=== PATIENT | female | born 1960 | race Caucasian/White ===

== ENCOUNTER → 2018-01-05 14:28 | Outpatient (CLI) | payer MEDICARE, MEDICAID, SELFPAY ==
[2018-01-05 14:46] LABS: Add Manual Diff / Slide Review NO; Basophils Percent Auto 0.5 % (0-2); Eosinophils Percent Auto 0.9 % (2-4); Hematocrit 43.6 % (36-46); Hemoglobin 15.1 g/dL (12.0-16.0); Lymphocytes Percent Auto 46.5 % (25-40); Mean Corpuscular HGB Conc 34.7 % (30-36); Mean Corpuscular Hemoglobin 30.3 PG (26-34); Mean Corpuscular Volume 87.4 fL (80-100); Neutrophils Absolute Auto 3500 /uL (3000-5900); Neutrophils Percent Auto 45.1 % (50-75); Platelet Count 238 X10^3/uL (150-400); Red Blood Cell Count 4.99 X10^6/uL (4.0-5.2); Red Cell Distribution Width 14.1 % (11.6-14.8); White Blood Cell Count 7.7 X10^3/uL (4.5-11.0)
[2018-01-05 14:58] LABS: Alanine Aminotransferase 21 IU/L (9-52); Albumin 4.3 g/dL (3.5-5.0); Albumin Globulin Ratio 1.3 (1.0-2.8); Alkaline Phosphatase 86 U/L (38-126); Aspartate Aminotransferase 21 IU/L (14-36); BUN Creatinine Ratio 8.3 (6-22); Bilirubin Total 0.5 mg/dL (0.2-1.3); Blood Urea Nitrogen 5 mg/dL (7-17); Calcium 9.2 mg/dL (8.4-10.2); Carbon Dioxide 22 mmol/L (22-32); Chloride 105 mmol/L (98-107); Estimated Glomerular Filt Rate > 60.0 mL/min (>60); Globulin 3.2 g/dL (1.7-4.1); Glucose 110 mg/dL (70-100); HEMOLYSIS < 15 (0-50); Potassium 3.8 mmol/L (3.4-5.1); Sodium 138 mmol/L (137-145); Total Protein 7.5 g/dL (6.3-8.2)
== END ==
PROVIDERS: PCP Family Medicine; Visit Provider Nurse Practitioner Gerontology
DX: D68.51 Activated protein C resistance (principal)
CPT/HCPCS: 36415; 80053; 85025

== ENCOUNTER → 2018-01-12 15:31 | Oncology outpatient (ONC) | payer MEDICARE, MEDICAID, SELFPAY ==
--- NOTE | 2018-01-12 15:40 | ONC.PN ---
Assessment and Plan - Time Spent with Patient IMPRESSION: 1. Intermittent lower extremity edema. 2. Factor 5 Leiden mutation, heterozygous. No documented history of clot. 3. Tobacco use, ongoing. 4. COPD. 5. Hyperlipidemia. I reviewed the findings, lab and prior results with her today. She understands that she is at somewhat increased risk for blood clot based on heterozygous factor 5 Leiden mutation. This is not a high risk but is increased above background population. The greater concern, I think, is her ongoing tobacco use with significant smoking history. Chart notes suggest advanced COPD though I am not able to confirm with prior PFTs or other studies at her visit today. I suspect her lower extremity edema may be secondary to pulmonary hypertension related to her COPD and resultant right heart failure. She is not ready to consider quitting smoking at this time we did discuss at length. I strongly encouraged her to give it another try then to follow up with the smoking cessation program to enhance her likelihood of success. She will follow up with Dr. Mcknight and she would like to return here in a year. I encouraged her to call if new symptoms or concerns arise. PLAN: 1. Encouraged smoking cessation. 2. Monitor for new symptoms and call back as needed. 3. Follow up with other providers as planned. 4. Return appointment in 1 year. DICTATED BY TERI ISLAS MD MEDICAL ONCOLOGY AND HEMATOLOGY PN -Subjective Interval history: HEMATOLOGY/ONCOLOGY PROGRESS NOTE DATE OF SERVICE: JANUARY 12, 2018 PATIENT NAME: DATE OF : 1960 PCP: Millicent Mcknight DO IDENTIFICATION: Ms. Caruso is a 57-year-old woman with factor V Leiden mutation, heterozygous who returns in follow-up. INTERVAL HISTORY: She returns today in routine follow-up. Last seen here by Lisa RIDDLE June 02, [address] Johnston January 2017. She was previously evaluated for possible thrombophilia with the only finding of note being factor 5 Leiden mutation in 1 of 2 copies, heterozygous. She has no documented history of venous thrombo embolus. She does note history of intermittent swelling in her legs. This seems to come and go and she has noted this for a number of years perhaps more than 10 years. She also has a significant smoking history and continues to smoke. Averages 2 packs per day and has smoked since her early 20s. She has tried to quit in the past but think she will always smoke. She denies any recent chest pain, productive cough or hemoptysis. Again no known or documented history of peripheral DVT, pulmonary embolus or stroke. PRIOR NOTE/INFO FROM DR JOHNSTON: History of present illness Date of Service: 02/22/17 Primary Care Provider Primary Care Provider: Millicent Mcknight DO Hx of Present illness The patient is a 56 year old Female who is being seen in the clinic 02/22/17 for suspected hypercoagulable state She was seen on January 11 2017 for further evaluation of a report that she recalls that she was told approximately 2 years ago that she had a potential hypercoagulable state and needed to be on a blood thinner. She recalls that she was told she was deficient in either protein C or protein S but she is not sure. She thinks the provider who advised her was name Jesus but we do not have any records of that. She provides a long history of swelling and discoloration of both lower extremities and this was described in more detail by the Yvette Woodson on 12/14/2014 as swelling of her feet and red spots. The patient reports that for more than 10 years she has developed swelling of the lower extremities particularly after traveling and she develops what she calls spots on both lower extremities that take several days to go away. She demonstrates one today; this is a purplish erythematous scaly lesion approx 5 mm in diameter and occurs, she states, in multiple sites on the lower extremities. The exam on 12/14/2014 was unremarkable, except for a few small red macules distal to the lateral malleolus of the left foot. However she did have a Doppler on 04/13/2012 for similar symptoms and this was negative for DVT. She reports no personal or family history of thromboses otherwise, no personal history of PE. Past Medical History From Millicent Mcknight, and from the patient: Hyperlipidemia Colon Polyps (05/2010 tubular adenoma on c-scope), GERD (gastritis on 05/2010 EGD) Cervical Spine Disease, Chronic Back Pain, Shoulder Pain Asthma, COPD [id number] COPD, 2 pack per day smoker multiple episodes of pneumonia chronic back and multiple joint pains managed previously by [facility]ized in [place] last year for chest pain and pneumonia Hypertension vitamin D deficiency Past Surgical History colposcopy Pain level (0-10): 0 Resusitation Status Full code Current Medications ACETAMINOPHEN (TYLENOL) 325 MG TABLET 350 MG PO Q4H PRN PAIN (Reported) ALBUTEROL SULFATE (PROAIR HFA INHALER) 90 MCG/PUFF HFA.AER.AD 1 PUFF INH SEE INSTRUCTIONS Inhale 2 puffs by mouth four times daily. Prescribed by Janeth Woodson DO ASPIRIN 81 MG TAB.CHEW 81 MG PO QDAY (Reported) Chew 1 tablet daily. Atorvastatin Calcium 10 MG TABLET 10 MG PO HS Take 1 tablet by mouth at bedtime. Prescribed by Millicent Mcknight DO CETIRIZINE HCL 10 MG TABLET 10 MG PO QAM Take one pill by mouth once a day in am. Prescribed by Roxanna HINES,Millicent CYCLOBENZAPRINE HCL 10 MG TABLET 10 MG PO HS TAKE 1/2-1 TAB BY MOUTH THREE TIMES A DAY NEEDED Prescribed by Roxanna HINES,Millicent DOCUSATE SODIUM (COLACE) 250 MG CAPSULE 250 MG PO BID Take one tablet/capsule twice a day by mouth Prescribed by Millicent Mcknight DO IBUPROFEN (Unknown Strength) TABLET (Unknown Dose) PO Q4H PRN PAIN (Reported) Metoprolol Succinate (METOPROLOL XL) 50 MG TAB.ER.24H 50 MG PO QDAY Prescribed by Millicent Mcknight DO OXYCODONE HCL (OXYCODONE IR) 10 MG TABLET 10 MG PO Q4HP PRN PAIN take 1/2 to 1 tab by mouth every 4-6hrs as needed gentle weaning max 4.5 tabs/day two week supply Prescribed by Willis Talavera Allergies Coded Allergies: cefuroxime (Mild, 04/22/15) codeine (Mild, 04/22/15) gabapentin (Mild, 04/22/15) morphine (stomach ache 05/04/16) Patient HAS received vaccine No Tobacco Use Screening and Cessation Intervention:* 01/11/17 Smoking status:+ Current every day smoker Smoking pack year history 46 (may be more - sometimes 2 pk) Tobacco cessation education Patient declined Lab BUN 6.0 mg/dL L 05/28/16 1331 Creatinine 0.60 mg/dL 05/28/16 1331 Factor V Leiden Mutat heterozygous 02/05/17 1043 Hct 42.6 % 05/28/16 1331 Hgb 14.7 G/DL 05/28/16 1331 Plt Count 236 X10^3/uL 05/28/16 1331 WBC 9.0 X10^3/uL 05/28/16 1331 Miscellaneous Test lupus neg 02/05/17 1043 Miscellaneous Test DRRVVT neg 02/05/17 1046 Prothrombin [id number] Mut neg 02/05/17 1043 Assessment/Plan Assessment This is a patient with curious lower extremity symptoms that do not easily fit the diagnosis of thrombosis; she does, however, have Factor V Leiden heterozygosity. There is no immediate indication for anticoagulation, but should she develop repeated courses of superficial thrombosis, temporary anticoagulation would make sense. No other hypercoagulablenstate has been identified and her risk for life-threatening thormbosis is low. Time spent with Patient A total of 30 minutes were spent on this appointment, greater than 50% of that time [id number] with the patient in counseling and coordination of care. Discussion with patient included lab results, [diagnosis], treatment options, risks and benefits. Plan for treatment Counselled on the significance of Factor V Leiden heterozygosity, and the recommendation to not anticoagulate. 3 month clinical follow up She is to call immediately for evaluation if she develops swelling of the leg Copies to Millicent Mcknight DO at [phone] <Electronically signed by Buddy Johnston MD> (PLEASE NOTE): This report may have been all or partially generated using a voice recognition software program. While every effort has been made to edit content upon its completion, quarter trimmer errors may occur. Please contact the [facility] Clinical Lab Specialist Services Dept. at if there are any questions, or if further clarification is necessitated. - Additional ROS Additional ROS: Review of systems General, no fever or night sweats. HEENT: No vision change, epistaxis or dysphagia. Respiratory: As above. Cardiac: No chest pain, PND or orthopnea. GI: No nausea, abdominal pain or early satiety. No history of cirrhosis. : Negative. No hematuria, dark colored urine or flank pain. Musculoskeletal: As above. Neurologic: Negative. Results - Imaging Additional studies: Procedures Closed [endoscopic] biopsy of large intestine (12/20/13) Esophagogastroduodenoscopy [EGD] with closed biopsy (06/24/10) Home Medications and Allergies Home Medications Medication Instructions Recorded Confirmed Type atorvastatin [Lipitor] 10 mg PO HS #30 tab 08/03/16 Rx cetirizine 10 mg PO QAM #90 tab 09/01/16 Rx docusate sodium 250 mg PO BID #60 cap 09/23/16 Rx acetaminophen 350 mg PO Q4H PRN #0 01/11/17 History aspirin 325 mg PO QDAY #0 01/11/17 History ibuprofen PO Q4H PRN #0 01/11/17 History cyclobenzaprine 10 mg PO HS #42 tab 02/19/17 Rx metoprolol succinate 50 mg PO QDAY #30 ter 06/20/17 Rx oxycodone 10 mg PO Q6HP PRN #112 tab 06/21/17 History Allergies Allergy/AdvReac Type Severity Reaction Status Date / Time cefuroxime Allergy Mild Unverified 11/03/17 13:03 codeine Allergy Mild Unverified 11/03/17 13:03 gabapentin Allergy Mild Unverified 11/03/17 13:03 morphine [MORPHINE] AdvReac Unknown stomach Unverified 11/03/17 13:03 ache Exam - Constitutional positive no acute distress, positive cooperative - Routine HEENT Exam Head: Present: normocephalic, atraumatic Eye: Present: EOMI, PERRL. Absent: conjunctival icterus, scleral injection, periorbital ecchymosis, periorbital swelling ENT: Present: mucous membranes moist, oropharynx clear - Routine Neck Exam Present: supple, full ROM. Absent: JVD, lymphadenopathy - Routine Respiratory Exam Present: Clear to auscultation bilaterally. Absent: rales, wheezes - Routine Cardiovascular Exam Present: RRR, S1, S2. Absent: murmur, S3 - Routine Abdominal Exam Present: soft, normoactive bowel sounds. Absent: tenderness, distended, organomegaly Palpation/Percussion: Absent: hepatomegaly, splenomegaly - Routine Extremities Exam Present: edema. Absent: clubbing, normal capillary refill, Jailyn's sign - Routine Skin Exam Present: intact. Absent: erythema, pallor, jaundice, rash, ecchymosis - Routine Neurological Exam Present: alert, oriented X3, moving all extremities, normal speech - Routine Psychiatric Exam Present: normal affect, normal thought process, cooperative
[2018-01-12 15:56] VITALS: BP 134/98; PULSE 86; RESP 16; TEMP 36.9; O2SAT 100
--- NOTE | 2018-01-12 16:09 | P.PNONC_ITS ---
Assessment and Plan - Time Spent with Patient IMPRESSION: 1. Intermittent lower extremity edema. 2. Factor 5 Leiden mutation, heterozygous. No documented history of clot. 3. Tobacco use, ongoing. 4. COPD. 5. Hyperlipidemia. I reviewed the findings, lab and prior results with her today. She understands that she is at somewhat increased risk for blood clot based on heterozygous factor 5 Leiden mutation. This is not a high risk but is increased above background population. The greater concern, I think, is her ongoing tobacco use with significant smoking history. Chart notes suggest advanced COPD though I am not able to confirm with prior PFTs or other studies at her visit today. I suspect her lower extremity edema may be secondary to pulmonary hypertension related to her COPD and resultant right heart failure. She is not ready to consider quitting smoking at this time we did discuss at length. I strongly encouraged her to give it another try then to follow up with the smoking cessation program to enhance her likelihood of success. She will follow up with Dr. Mcknight and she would like to return here in a year. I encouraged her to call if new symptoms or concerns arise. PLAN: 1. Encouraged smoking cessation. 2. Monitor for new symptoms and call back as needed. 3. Follow up with other providers as planned. 4. Return appointment in 1 year. DICTATED BY TERI ISLAS MD MEDICAL ONCOLOGY AND HEMATOLOGY PN -Subjective Interval history: HEMATOLOGY/ONCOLOGY PROGRESS NOTE DATE OF SERVICE: JANUARY 12, 2018 PATIENT NAME: DATE OF : 1960 PCP: Millicent Mcknight DO IDENTIFICATION: Ms. Caruso is a 57-year-old woman with factor V Leiden mutation, heterozygous who returns in follow-up. INTERVAL HISTORY: She returns today in routine follow-up. Last seen here by Lisa RIDDLE June 02, [address] Johnston January 2017. She was previously evaluated for possible thrombophilia with the only finding of note being factor 5 Leiden mutation in 1 of 2 copies, heterozygous. She has no documented history of venous thrombo embolus. She does note history of intermittent swelling in her legs. This seems to come and go and she has noted this for a number of years perhaps more than 10 years. She also has a significant smoking history and continues to smoke. Averages 2 packs per day and has smoked since her early 20s. She has tried to quit in the past but think she will always smoke. She denies any recent chest pain, productive cough or hemoptysis. Again no known or documented history of peripheral DVT, pulmonary embolus or stroke. PRIOR NOTE/INFO FROM DR JOHNSTON: History of present illness Date of Service: 02/22/17 Primary Care Provider Primary Care Provider: Millicent Mcknight DO Hx of Present illness The patient is a 56 year old Female who is being seen in the clinic 02/22/17 for suspected hypercoagulable state She was seen on January 11 2017 for further evaluation of a report that she recalls that she was told approximately 2 years ago that she had a potential hypercoagulable state and needed to be on a blood thinner. She recalls that she was told she was deficient in either protein C or protein S but she is not sure. She thinks the provider who advised her was name Jesus but we do not have any records of that. She provides a long history of swelling and discoloration of both lower extremities and this was described in more detail by the Yvette Woodson on 2014 as swelling of her feet and red spots. The patient reports that for more than 10 years she has developed swelling of the lower extremities particularly after traveling and she develops what she calls spots on both lower extremities that take several days to go away. She demonstrates one today; this is a purplish erythematous scaly lesion approx 5 mm in diameter and occurs , she states, in multiple sites on the lower extremities. The exam on 2014 was unremarkable, except for a few small red macules distal to the lateral malleolus of the left foot. However she did have a Doppler on 04/13/2012 for similar symptoms and this was negative for DVT. She reports no personal or family history of thromboses otherwise, no personal history of PE. Past Medical History From Millicent Mcknight, and from the patient: Hyperlipidemia Colon Polyps (05/2010 tubular adenoma on c-scope), GERD (gastritis on 05/2010 EGD) Cervical Spine Disease, Chronic Back Pain, Shoulder Pain Asthma, COPD [id number] COPD, 2 pack per day smoker multiple episodes of pneumonia chronic back and multiple joint pains managed previously by [facility]ized in [place] last year for chest pain and pneumonia Hypertension vitamin D deficiency Past Surgical History colposcopy Pain level (0-10): 0 Resusitation Status Full code Current Medications ACETAMINOPHEN (TYLENOL) 325 MG TABLET 350 MG PO Q4H PRN PAIN (Reported) ALBUTEROL SULFATE (PROAIR HFA INHALER) 90 MCG/PUFF HFA.AER.AD 1 PUFF INH SEE INSTRUCTIONS Inhale 2 puffs by mouth four times daily. Prescribed by Janeth Woodson DO ASPIRIN 81 MG TAB.CHEW 81 MG PO QDAY (Reported) Chew 1 tablet daily. Atorvastatin Calcium 10 MG TABLET 10 MG PO HS Take 1 tablet by mouth at bedtime. Prescribed by Millicent Mcknight DO CETIRIZINE HCL 10 MG TABLET 10 MG PO QAM Take one pill by mouth once a day in am. Prescribed by Roxanna HINES,Millicent CYCLOBENZAPRINE HCL 10 MG TABLET 10 MG PO HS TAKE 1/2-1 TAB BY MOUTH THREE TIMES A DAY NEEDED Prescribed by Roxanna HINES,Millicent DOCUSATE SODIUM (COLACE) 250 MG CAPSULE 250 MG PO BID Take one tablet/capsule twice a day by mouth Prescribed by Millicent Mcknight DO IBUPROFEN (Unknown Strength) TABLET (Unknown Dose) PO Q4H PRN PAIN (Reported) Metoprolol Succinate (METOPROLOL XL) 50 MG TAB.ER.24H 50 MG PO QDAY Prescribed by Millicent Mcknight DO OXYCODONE HCL (OXYCODONE IR) 10 MG TABLET 10 MG PO Q4HP PRN PAIN take 1/2 to 1 tab by mouth every 4-6hrs as needed gentle weaning max 4.5 tabs/day two week supply Prescribed by Willis Talavera Allergies Coded Allergies: cefuroxime (Mild, 04/22/15) codeine (Mild, 04/22/15) gabapentin (Mild, 04/22/15) morphine (stomach ache 05/04/16) Patient HAS received vaccine No Tobacco Use Screening and Cessation Intervention:* 01/11/17 Smoking status:+ Current every day smoker Smoking pack year history 46 (may be more - sometimes 2 pk) Tobacco cessation education Patient declined Lab BUN 6.0 mg/dL L 05/28/16 1331 Creatinine 0.60 mg/dL 05/28/16 1331 Factor V Leiden Mutat heterozygous 02/05/17 1043 Hct 42.6 % 05/28/16 1331 Hgb 14.7 G/DL 05/28/16 1331 Plt Count 236 X10^3/uL 05/28/16 1331 WBC 9.0 X10^3/uL 05/28/16 1331 Miscellaneous Test lupus neg 02/05/17 1043 Miscellaneous Test DRRVVT neg 02/05/17 1046 Prothrombin [id number] Mut neg 02/05/17 1043 Assessment/Plan Assessment This is a patient with curious lower extremity symptoms that do not easily fit the diagnosis of thrombosis; she does, however, have Factor V Leiden heterozygosity. There is no immediate indication for anticoagulation, but should she develop repeated courses of superficial thrombosis, temporary anticoagulation would make sense. No other hypercoagulablenstate has been identified and her risk for life- threatening thormbosis is low. Time spent with Patient A total of 30 minutes were spent on this appointment, greater than 50% of that time [id number] with the patient in counseling and coordination of care. Discussion with patient included lab results, [diagnosis], treatment options, risks and benefits. Plan for treatment Counselled on the significance of Factor V Leiden heterozygosity, and the recommendation to not anticoagulate. 3 month clinical follow up She is to call immediately for evaluation if she develops swelling of the leg Copies to Millicent Mcknight DO at 2303 <Electronically signed by Buddy Johnston MD> (PLEASE NOTE): This report may have been all or partially generated using a voice recognition software program. While every effort has been made to edit content upon its completion, school plant consultant errors may occur. Please contact the [facility] Production Grader Services Dept. at if there are any questions, or if further clarification is necessitated. - Additional ROS Additional ROS: Review of systems General, no fever or night sweats. HEENT: No vision change, epistaxis or dysphagia. Respiratory: As above. Cardiac: No chest pain, PND or orthopnea. GI: No nausea, abdominal pain or early satiety. No history of cirrhosis. : Negative. No hematuria, dark colored urine or flank pain. Musculoskeletal: As above. Neurologic: Negative. Results - Imaging Additional studies: Procedures Closed [endoscopic] biopsy of large intestine (12/20/13) Esophagogastroduodenoscopy [EGD] with closed biopsy (06/24/10) Home Medications and Allergies Home Medications Medication Instructions Recorded Confirmed Type atorvastatin [Lipitor] 10 mg PO HS #30 tab 08/03/16 Rx cetirizine 10 mg PO QAM #90 tab 09/01/16 Rx docusate sodium 250 mg PO BID #60 cap 09/23/16 Rx acetaminophen 350 mg PO Q4H PRN #0 01/11/17 History aspirin 325 mg PO QDAY #0 01/11/17 History ibuprofen PO Q4H PRN #0 01/11/17 History cyclobenzaprine 10 mg PO HS #42 tab 02/19/17 Rx metoprolol succinate 50 mg PO QDAY #30 ter 06/20/17 Rx oxycodone 10 mg PO Q6HP PRN #112 tab 06/21/17 History Allergies Allergy/AdvReac Type Severity Reaction Status Date / Time cefuroxime Allergy Mild Unverified 11/03/17 13:03 codeine Allergy Mild Unverified 11/03/17 13:03 gabapentin Allergy Mild Unverified 11/03/17 13:03 morphine [MORPHINE] AdvReac Unknown stomach Unverified 11/03/17 13:03 ache Exam - Constitutional positive no acute distress, positive cooperative - Routine HEENT Exam Head: Present: normocephalic, atraumatic Eye: Present: EOMI, PERRL. Absent: conjunctival icterus, scleral injection, periorbital ecchymosis, periorbital swelling ENT: Present: mucous membranes moist, oropharynx clear - Routine Neck Exam Present: supple, full ROM. Absent: JVD, lymphadenopathy - Routine Respiratory Exam Present: Clear to auscultation bilaterally. Absent: rales, wheezes - Routine Cardiovascular Exam Present: RRR, S1, S2. Absent: murmur, S3 - Routine Abdominal Exam Present: soft, normoactive bowel sounds. Absent: tenderness, distended, organomegaly Palpation/Percussion: Absent: hepatomegaly, splenomegaly - Routine Extremities Exam Present: edema. Absent: clubbing, normal capillary refill, Jailyn's sign - Routine Skin Exam Present: intact. Absent: erythema, pallor, jaundice, rash, ecchymosis - Routine Neurological Exam Present: alert, oriented X3, moving all extremities, normal speech - Routine Psychiatric Exam Present: normal affect, normal thought process, cooperative
--- NOTE | 2018-12-29 12:41 | ONC.SCHED ---
12/29/18: Called pt. to set up 1 year follow up appt as needed in the shared calendar. Pt. stated that she would call back to schedule this later. Message in our shared calendar has been updated to reflect this and color has been changed to YELLOW. -JANINE
== END ==
PROVIDERS: PCP Family Medicine; Visit Provider Internal Medicine Hematology & Oncology
DX: D68.51 Activated protein C resistance (principal)
CPT/HCPCS: 99214

== ENCOUNTER → 2018-03-15 13:11 | Outpatient (CLI) | payer MEDICARE, MEDICAID, SELFPAY ==
--- NOTE | 2018-03-15 13:13 | DI.RAD.S_ITS ---
PROCEDURE: XR SHOULDER RT MIN 2V INDICATIONS: PAIN TECHNIQUE: 3 views of the shoulder were acquired. COMPARISON: None. FINDINGS: Bones: No fractures or dislocations. No suspicious bony lesions. Visualized ribs appear intact. Mild joint narrowing with periarticular osteophyte formation of the acromioclavicular joint. Soft tissues: No suspicious soft tissue calcifications. IMPRESSION: 1. Mild acromioclavicular joint degeneration. Dictated by: Tarik Mosquera [facility] Interpreted: Kasey Villalobos MD on 03/15/2018 at 13:49 Approved by: Kasey Villalobos MD, PhD on 03/15/2018 at 16:09
== END ==
PROVIDERS: PCP Family Medicine; Visit Provider Family Medicine
DX: M19.011 Primary osteoarthritis, right shoulder (principal); M25.511 Pain in right shoulder
CPT/HCPCS: 73030

== ENCOUNTER → 2022-03-12 16:55 | Outpatient (CLI) | payer MEDICARE, MEDICAID, SELFPAY ==
[2022-03-12 17:49] LABS: Hematocrit 40.4 % (36-46); Mean Corpuscular HGB Conc 34.6 % (30-36); Mean Corpuscular Hemoglobin 30.9 PG (26-34); Mean Corpuscular Volume 89.3 fL (80-100); Platelet Count 307 X10^3/uL (150-400); Red Blood Cell Count 4.52 X10^6/uL (4.0-5.2); Red Cell Distribution Width 13.6 % (11.6-14.8); White Blood Cell Count 14.9 X10^3/uL (4.5-11.0)
[2022-03-12 18:17] LABS: Alanine Aminotransferase 11 IU/L (<35); Albumin 4.1 g/dL (3.5-5.0); Albumin Globulin Ratio 1.4 (1.0-2.8); Alkaline Phosphatase 111 U/L (38-126); Aspartate Aminotransferase 17 IU/L (14-36); BUN Creatinine Ratio 8.3 (6-22); Bilirubin Total 0.6 mg/dL (0.2-1.3); Bilirubin Unconjugated 0.4 mg/dL (0.0-1.1); Blood Urea Nitrogen 5 mg/dL (7-17); Calcium 8.6 mg/dL (8.4-10.2); Carbon Dioxide 29 mmol/L (22-32); Chloride 102 mmol/L (98-107); Cholesterol 160 mg/dL (140-199); Estimated Glomerular Filt Rate > 60 mL/min (>60); Globulin 2.9 g/dL (1.7-4.1); Glucose 99 mg/dL (80-110); HDL Cholesterol 47 mg/dL (40-60); HEMOLYSIS < 15 (0-50); LDL Cholesterol Calculated 65 mg/dL (<100); Potassium 3.4 mmol/L (3.4-5.1); Sodium 138 mmol/L (137-145); Triglycerides 240 mg/dL (35-150)
== END ==
PROVIDERS: PCP Internal Medicine; Referring Provider Internal Medicine; Visit Provider Internal Medicine
DX: E78.2 Mixed hyperlipidemia (principal); I10 Essential (primary) hypertension; J44.9 Chronic obstructive pulmonary disease, unspecified; B35.1 Tinea unguium
CPT/HCPCS: 36415; 80053; 80061; 80076; 84443; 85027

== ENCOUNTER → 2022-10-26 14:49 | Outpatient (CLI) | payer MEDICARE, MEDICAID, SELFPAY ==
[2022-10-26 15:13] LABS: Hematocrit 43.7 % (36-46); Hemoglobin 15.1 g/dL (12.0-16.0); Mean Corpuscular HGB Conc 34.7 % (30-36); Mean Corpuscular Volume 89.3 fL (80-100); Platelet Count 381 X10^3/uL (150-400); Red Blood Cell Count 4.89 X10^6/uL (4.0-5.2); Red Cell Distribution Width 13.4 % (11.6-14.8); White Blood Cell Count 14.2 X10^3/uL (4.5-11.0)
[2022-10-26 15:43] LABS: Alanine Aminotransferase 16 IU/L (<35); Albumin 4.1 g/dL (3.5-5.0); Albumin Globulin Ratio 1.2 (1.0-2.8); Alkaline Phosphatase 108 U/L (38-126); Amylase 70 U/L (30-110); Aspartate Aminotransferase 21 IU/L (14-36); BUN Creatinine Ratio 10.9 (6-22); Bilirubin Total 0.5 mg/dL (0.2-1.3); Blood Urea Nitrogen 7 mg/dL (7-17); Calcium 8.6 mg/dL (8.4-10.2); Carbon Dioxide 23 mmol/L (22-32); Chloride 102 mmol/L (98-107); Estimated Glomerular Filt Rate > 60 mL/min (>60); Globulin 3.5 g/dL (1.7-4.1); Glucose 111 mg/dL (80-110); HEMOLYSIS < 15 (0-50); Lipase 33 U/L (23-300); Potassium 3.6 mmol/L (3.4-5.1); Sodium 135 mmol/L (137-145); Total Protein 7.6 g/dL (6.3-8.2)
== END ==
PROVIDERS: PCP Internal Medicine; Referring Provider Internal Medicine; Visit Provider Internal Medicine
DX: R11.2 Nausea with vomiting, unspecified (principal)
CPT/HCPCS: 36415; 80053; 82150; 83690; 85027

== ENCOUNTER → 2023-09-28 10:56 | Outpatient (CLI) | payer MEDICARE, MEDICAID, SELFPAY ==
--- NOTE | 2023-09-28 10:57 | DI.MRI.S_ITS ---
PROCEDURE: MR LUMBAR SPINE WO CON INDICATIONS: Spinal stenosis, lumbar region without neurogenic TECHNIQUE: Noncontrast sagittal T1 spin echo and T2 fast echo, sagittal STIR, and T2 fast spin echo through the lumbar spine. In cases with scoliosis, additional coronal T2 fast spin echo may be performed. COMPARISON: [facility], , L-SPINE WITHOUT CONTRAST, 12/04/2016, 17:58. FINDINGS: Image quality: Diagnostic, with note made of motion artifact. Alignment and Curvature: Mild dextroconvex scoliotic curvature is seen. Minimal retrolisthesis can be seen at the L2 L3, L3-L4, and L4-L5 levels. Bone Marrow: Marrow is of normal overall signal. No acute vertebral body compression fractures. Spinal Cord: Conus medullaris terminates at the L1 level. Visualized cord demonstrates normal signal and size. Paraspinous Soft Tissues: No paravertebral masses. T12-L1: Normal appearance. L1-L2: The disc height and disk signal are relatively well-preserved. Mild to moderate disc bulge is seen, with a right foraminal disc protrusion, as on series 7, image 9. Mild facet joint hypertrophy is seen. There is mild right-sided and no left-sided neural foraminal narrowing. No central canal narrowing is seen. The degree of right foraminal disc protrusion is worse than in 2017. L2-L3: The disc height is well-preserved. Loss of disc signal is seen at this level. Mild to moderate disc bulge is seen, which is slightly eccentric to the right. There is a superimposed central disc protrusion. Mild facet joint hypertrophy is seen. There is moderate right-sided and no left-sided neural foraminal narrowing. Mild to moderate central canal narrowing is seen. These imaging findings have progressed compared to the prior study. L3-L4: The disc height is well-preserved. Loss of disc signal is seen at this level. Mild to moderate disc bulge is seen. There is mild left-sided and moderate right-sided neural foraminal narrowing. Minimal central canal narrowing is seen. These imaging findings have progressed compared to the prior study. L4-L5: The disc height is well-preserved. Loss of disc signal is seen at this level. Moderate disc bulge is seen, which is eccentric to the right. There is moderate right-sided and mild left-sided facet hypertrophy. Moderate bilateral neural foraminal narrowing is seen. No central canal narrowing is seen. There is slight progression compared to 2017. L5-S1: No significant abnormality is seen. Centered at the S2-S3 level, there is partial visualization of the known Tarlov cyst (perineural cyst). IMPRESSION: Multiple levels of lumbar spine degenerative change can be seen, which are overall mildly progressed compared to 2017. There is partial visualization of the known large Tarlov cyst within the sacrum. Dictated by: Carmelo Garvin M.D. on 09/28/2023 at 12:17 Approved by: Carmelo Garvin M.D. on 09/28/2023 at 12:22
== END ==
PROVIDERS: PCP Internal Medicine; Referring Provider Acupuncturist; Visit Provider Acupuncturist
DX: M48.061 Spinal stenosis, lumbar region without neurogenic claudication (principal); M47.816 Spondylosis without myelopathy or radiculopathy, lumbar region; G96.191 Perineural cyst
CPT/HCPCS: 72148

== ENCOUNTER → 2023-10-20 15:10 | Outpatient (CLI) | payer MEDICARE, MEDICAID, SELFPAY ==
[2023-10-20 15:52] LABS: Hematocrit 44.6 % (36-46); Hemoglobin 15.2 g/dL (12.0-16.0); Mean Corpuscular Hemoglobin 32.1 PG (26-34); Mean Corpuscular Volume 94.4 fL (80-100); Platelet Count 360 X10^3/uL (150-400); Red Blood Cell Count 4.73 X10^6/uL (4.0-5.2); Red Cell Distribution Width 14.2 % (11.6-14.8); White Blood Cell Count 17.7 X10^3/uL (4.5-11.0)
[2023-10-20 16:46] LABS: Alanine Aminotransferase 12 IU/L (<35); Albumin Globulin Ratio 1.4 (1.0-2.8); Alkaline Phosphatase 93 U/L (38-126); Aspartate Aminotransferase 16 IU/L (14-36); BUN Creatinine Ratio 10.7 (6-22); Bilirubin Total 0.5 mg/dL (0.2-1.3); Blood Urea Nitrogen 6 mg/dL (7-17); Calcium 8.8 mg/dL (8.4-10.2); Carbon Dioxide 27 mmol/L (22-32); Chloride 105 mmol/L (98-107); Cholesterol 154 mg/dL (140-199); Estimated Glomerular Filt Rate > 60 mL/min (>60); Globulin 2.9 g/dL (1.7-4.1); Glucose 113 mg/dL (80-110); HDL Cholesterol 43 mg/dL (40-60); HEMOLYSIS < 15 (0-50); LDL Cholesterol Calculated 71 mg/dL (<100); Potassium 3.8 mmol/L (3.4-5.1); Sodium 136 mmol/L (137-145); Total Protein 6.9 g/dL (6.3-8.2); Triglycerides 200 mg/dL (35-150)
== END ==
PROVIDERS: PCP Internal Medicine; Referring Provider Internal Medicine; Visit Provider Internal Medicine
DX: I10 Essential (primary) hypertension (principal); E78.2 Mixed hyperlipidemia; D72.829 Elevated white blood cell count, unspecified
CPT/HCPCS: 36415; 80053; 80061; 85027

== ENCOUNTER → 2023-11-02 13:04 | Outpatient (CLI) | payer MEDICARE, MEDICAID, SELFPAY ==
--- NOTE | 2023-11-02 13:06 | DI.RAD.S_ITS ---
Bone Density Report Name: CLYDE ANAYA Age: 62 Sex: Female Ethnicity: White Date of : 1960 Indication: postmenopausal; screening for osteoporosis; Referring Provider: CRISTOFER PEREZ Study: Bone densitometry was performed. Exam Date: November 02, 2023 Accession number: [id number] Bone Density: Region BMD T-score Z-score Classification AP Spine(L1-L4) 0.924 -1.1 0.6 Osteopenia Femoral Neck (Left) 0.605 -2.2 -0.7 Osteopenia Total Hip (Left) 0.793 -1.2 0.0 Osteopenia Femoral Neck (Right) 0.610 -2.2 -0.7 Osteopenia Total Hip (Right) 0.749 -1.6 -0.4 Osteopenia Total Hip Mean 0.771 -1.4 -0.2 Osteopenia World Health Organization criteria for BMD impression classify patients as: Normal (T-score at or above -1.0), Osteopenia (T-score between -1.0 and -2.5), or Osteoporosis (T-score at or below -2.5). 10-year Fracture Risk(1): Major Osteoporotic Fracture 11% Hip Fracture 3.0% Reported Risk Factors: [place] (), Neck BMD=0.605, BMI=23.0, smoking (1) FRAX(R) Version 3.08. Fracture probability calculated for an untreated patient. Fracture probability may be lower if the patient has received treatment. Impression: The patient has low bone mass, based on the Left Femoral Neck T-score. The patient has an estimated ten-year risk of hip fracture of 3% and an estimated ten-year risk of major fracture of 11%, based on the WHO FRAX algorithm. The patient has risk factors, including: smoking. Discussion: BONE DENSITY IS LOW AT ONE OR MORE SKELETAL SITES. THE PATIENT'S BMD AND CLINICAL RISK FACTORS CONTRIBUTE TO THIS PATIENT'S INCREASED RISK OF FRACTURE. This patient's lowest T-score is low at one or more skeletal sites. It meets the World Health Organization's (WHO) criteria for low bone mass (T-score between -1.0 and -2.5). The patient's 10-year risk of hip fracture as calculated by FRAX exceeds the threshold where pharmacological therapy is recommended by the National Osteoporosis Foundation (NOF). However, all treatment decisions require clinical judgment and consideration of individual patient factors, including patient preferences, comorbidities, previous drug use, risk factors not captured in the FRAX model (e.g., frailty, falls, vitamin D deficiency, increased bone turnover, interval significant decline in bone density) and possible under or overestimation of fracture risk by FRAX. The patient should follow a healthful lifestyle (good nutrition with adequate calcium and vitamin D, and appropriate weight-bearing exercise). Follow-Up: Consider a repeat BMD and Vertebral Fracture Assessment (VFA) exam in 2 years or sooner if medically necessary, to reassess this patient's status. Reported by: STACY LANTIGUA MD on 11/02/2023 1:35:00 PM.
--- NOTE | 2023-11-02 13:09 | DI.CT.S_ITS ---
PROCEDURE: CT LUNG LOW DOSE SCREENING INDICATIONS: lung cancer screening TECHNIQUE: Noncontrast 2.0-2.5 mm thick sections acquired from the pulmonary apices to the posterior costophrenic angles. 7 mm thick axial MIP, and 5 mm coronal and sagittal reformats were then acquired. For radiation dose reduction, the following was used: automated exposure control, adjustment of mA and/or kV according to patient size. COMPARISON: None. FINDINGS: Image quality: Diagnostic. Lower Neck: No enlarged lymph nodes. Thyroid: No thyroid nodules which require sonographic follow up, per consensus guidelines. Axillae: No enlarged lymph nodes. Chest Wall: Unremarkable. Bones: Unremarkable. Lungs and Pleura: Moderate centrilobular emphysema is present within apically predominance. There are scattered regions of peripheral interlobular septal thickening suggesting fibrotic changes. A lobulated 8 mm pulmonary nodule is present within the lateral aspect of the right upper lobe (series 3/image 73). Heart: Heart size is normal. No pericardial effusion. Thoracic Vessels: The aorta and pulmonary arteries demonstrate normal size. Mediastinum and Valeria: No enlarged lymph nodes. Esophagus: No wall thickening. No hiatal hernia. Upper Abdomen: Visualized upper abdomen solid organs and bowel loops appear normal. IMPRESSION: 1. 7 mm right upper lobe pulmonary nodule. 2. Centrilobular emphysema and probable early fibrotic changes. LUNG-RADS 3; probably benign. Six-month follow-up CT recommended. Clinically Significant Non-pulmonary Findings: None. Dictated by: Adele Oneill M.D. on 11/02/2023 at 13:53 Approved by: Adele Oneill M.D. on 11/02/2023 at 13:57
== END ==
LOC: RAD 13:05
PROVIDERS: PCP Internal Medicine; Referring Provider Internal Medicine; Visit Provider Internal Medicine
DX: F17.210 Nicotine dependence, cigarettes, uncomplicated (principal); J43.2 Centrilobular emphysema; Z12.2 Encounter for screening for malignant neoplasm of respiratory organs; R91.1 Solitary pulmonary nodule; M85.89 Other specified disorders of bone density and structure, multiple sites
CPT/HCPCS: 71271; 77080

== ENCOUNTER 2024-02-17 13:06 | Observation (INO) | payer MEDICARE, MEDICAID, SELFPAY ==
[2024-02-17] VITALS (22 sets, daily range): BP systolic 143–218; BP diastolic 77–108; PULSE 52–68; RESP 16–43; TEMP 36.1–36.8; O2SAT 94–100; BMI 22.8
--- NOTE | 2024-02-17 13:07 | DI.RAD.S_ITS ---
PROCEDURE: XR CHEST 1V INDICATIONS: chest pain TECHNIQUE: One view of the chest was acquired. COMPARISON: [facility], , CHEST 2 VIEW, 05/28/2016, 13:29. FINDINGS: Surgical changes and devices: None. Lungs and pleura: Lungs are clear. No pleural effusions or pneumothorax. Mediastinum: Mediastinal contours appear normal. Heart size is normal. Bones and chest wall: No suspicious bony lesions. Overlying soft tissues appear unremarkable. IMPRESSION: No acute cardiopulmonary abnormality is seen. Dictated by: Jian Ovalles M.D. on 02/17/2024 at 14:52 Approved by: Jian Ovalles M.D. on 02/17/2024 at 14:53
--- NOTE | 2024-02-17 13:14 | EKG_ITS ---
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
--- NOTE | 2024-02-17 13:16 | DI.CT.S_ITS ---
PROCEDURE: CT ANGIO CHEST ABDOMEN PELVIS INDICATIONS: CHEST TO BACK PAIN TECHNIQUE: Precontrast 5 mm thick sections acquired from the lung apices to the iliac crests. After the administration of intravenous contrast, 2.5 mm thick sections again acquired from the lung apices to the iliac crests. Maximum intensity projection (MIP) oblique sagittal and coronal reformats were then acquired. For radiation dose reduction, the following was used: automated exposure control. COMPARISON: None. FINDINGS: Image quality: Diagnostic. AORTA and its attachments: Thoracic and abdominal aorta are of normal caliber without aneurysm or dissection. Classic three-vessel arch anatomy. Great vessel origins are widely patent. SMA, celiac, BALJEET, and bilateral renal arteries are patent. Mild diffuse iliac disease bilaterally. There may be as much as a moderate focal stenosis of the external iliacs bilaterally. 1: No acute pulmonary emboli. CHEST: Lower Neck: No enlarged lymph nodes. Thyroid: No thyroid nodules which require sonographic evaluation. Axillae: No enlarged lymph nodes. Chest Wall: Unremarkable. Lungs and Pleura: No pneumothorax or pleural effusions. Moderate emphysematous change. There is also a degree of mild pulmonary interstitial fibrosis. No focal pulmonary infiltrates. No suspicious pulmonary nodules. Heart: Borderline cardiomegaly with right atrial enlargement. No pericardial effusion. Thoracic Vessels: Pulmonary arteries demonstrate normal size. Mediastinum and Valeria: No enlarged lymph nodes. Esophagus: No wall thickening. No hiatal hernia. ABDOMEN: Liver: No solid mass. Gallbladder: The gallbladder is not abnormally distended. However, there is gallbladder wall thickening and possible gallbladder wall edema. Biliary ducts: No biliary dilation. Pancreas: No ductal dilation. Spleen: Size is within normal limits. Adrenal Glands: No adrenal nodules. Kidneys and Ureters: No hydronephrosis. No solid mass. No complex renal cystic lesion which requires follow up. Stomach and Bowel: Normal colonic caliber, without significant wall thickening. Peritoneum: No abnormal intraperitoneal fluid. No free air. Ventral Wall: No hernia. Abdominal Nodes: No retroperitoneal or mesenteric adenopathy by size criteria. Vessels: Inferior vena cava is normal in size. PELVIS: Pelvic Organs: Unremarkable. Bladder: Unremarkable. Pelvic Nodes: No enlarged lymph nodes. Miscellaneous: No inguinal hernias are seen. Bones: Unremarkable. IMPRESSION: 1. No significant abnormality noted involving the thoracic and abdominal aorta. 2. Moderate emphysematous change and mild pulmonary interstitial fibrosis. 3. No acute abnormality in the chest. 4. Borderline cardiomegaly with right atrial enlargement. 5. Although the gallbladder is not distended. There is gallbladder wall thickening and a somewhat edematous appearance of the gallbladder. 6. No other potentially significant acute findings in the abdomen and pelvis. Comment: Consider right upper quadrant ultrasound if suspect acute cholecystitis. Dictated by: Jian Ovalles M.D. on 02/17/2024 at 13:47 Approved by: Jian Ovalles M.D. on 02/17/2024 at 14:15
[2024-02-17] MEDS: ASPIRIN 81 MG CHEW TAB 324 MG PO (13:21)
[2024-02-17 13:24] LABS: Add Manual Diff / Slide Review NO; Basophils Absolute Auto 100 /uL (0-100); Basophils Percent Auto 0.5 % (0-2); Eosinophils Absolute Auto 0 /uL (0-450); Eosinophils Percent Auto 0.2 % (2-4); Hematocrit 45.6 % (36-46); Hemoglobin 15.6 g/dL (12.0-16.0); Lymphocytes Absolute Auto 3800 /uL (1100-4500); Lymphocytes Percent Auto 22.9 % (25-40); Mean Corpuscular HGB Conc 34.2 % (30-36); Mean Corpuscular Hemoglobin 32.2 PG (26-34); Mean Corpuscular Volume 94.4 fL (80-100); Monocytes Absolute Auto 600 /uL (0-900); Monocytes Percent Auto 3.8 % (3-14); Neutrophils Absolute Auto 12100 /uL (1500-7000); Neutrophils Percent Auto 72.6 % (50-75); Platelet Count 373 X10^3/uL (150-400); Red Blood Cell Count 4.83 X10^6/uL (4.0-5.2); Red Cell Distribution Width 14.5 % (11.6-14.8); White Blood Cell Count 16.7 X10^3/uL (4.5-11.0)
--- NOTE | 2024-02-17 13:24 | PC.NURSE ---
Patient declined having morphine as patient states I had a test here that states morphine doesn't work on my I don't metabolize it. This RN held this medication and notified provider.
[2024-02-17 13:32] LABS: INR 1.1 (0.9-1.3); Prothrombin Time 12.1 SECONDS (9.4-12.5)
--- NOTE | 2024-02-17 13:32 | ED_ITS ---
HPI - Chest Pain General Chief Complaint: Chest Pain Stated Complaint: chest px, sob, vomiting Time Seen by Provider: 02/17/24 13:06 Mode of arrival: Wheelchair History of Present Illness HPI narrative: 63-year-old female with history of COPD, hypertension, hyperlipidemia presents by private vehicle from home for right-sided chest pain that radiates to her back. Patient arrives writhing, clutching her chest. symptoms began earlier this morning and woke her up from sleep. Nothing made the pain better and so she came to the emergency department for evaluation. Stat CT angio ordered for dissection evaluation due to the patient's report of pain as well as the severity Related Data Home Medications Medication Instructions Recorded Confirmed oxycodone 10 mg tablet 10 mg PO QID #112 tabs 06/21/17 02/17/24 cyclobenzaprine 10 mg tablet 10 mg PO TID PRN Spasms 01/12/18 02/17/24 nebulizer and compressor 01/12/18 02/17/24 tiotropium bromide 18 mcg capsule 1 cap inhalation DAILY 10/16/21 02/17/24 with inhalation device (Spiriva with HandiHaler) Benadryl 25 mg PO QPM aller 02/17/24 02/17/24 Previous Rx's Medication Instructions Recorded albuterol sulfate 90 mcg/actuation 2 puff inhalation Q6H PRN 10/16/21 aerosol inhaler bronchospasm #25.5 grams Disabled Parking Permit 1 ea Not Applicable DAILY #1 ea 01/25/23 atorvastatin 10 mg tablet (Lipitor) 10 mg PO HS #90 tabs 08/10/23 metoprolol succinate 50 mg 50 mg PO QDAY #90 tabs 08/10/23 tablet,extended release 24 hr terbinafine HCl 250 mg tablet 250 mg PO DAILY #30 tabs 10/20/23 umeclidinium 62.5 mcg-vilanterol 1 inh inhalation DAILY #90 ea 10/20/23 25 mcg/actuation powdr for inhalation (Anoro Ellipta) amlodipine 5 mg tablet 5 mg PO DAILY #90 tabs 12/07/23 amoxicillin 500 mg-potassium 1 tab PO BID #10 tabs 02/18/24 clavulanate 125 mg tablet (Augmentin) oxycodone 10 mg tablet 10 mg PO Q4H PRN pain #20 tabs 02/18/24 Allergies Allergy/AdvReac Type Severity Reaction Status Date / Time cefuroxime Allergy Intermediate Rash & Verified 02/18/24 16:10 itching codeine Allergy Mild Verified 02/17/24 13:15 gabapentin Allergy Mild Verified 02/17/24 13:15 varenicline AdvReac Intermediate Vomiting Verified 02/17/24 13:15 morphine [MORPHINE] AdvReac Unknown stomach Verified 02/17/24 13:15 ache Patient History Medical History COPD (chronic obstructive pulmonary disease) Family history of colitis in mother Leukocytosis Tobacco use Family history of colon cancer in mother History of colonic polyps Menopausal syndrome Allergic rhinitis Depression Pneumonia (~03/2016) Chronic pain Cervical spine disease Chronic back pain Asthma Shoulder pain Colon polyps GERD (gastroesophageal reflux disease) Hyperlipemia Surgical History Status post colposcopy Family History Brother Small cell lung cancer Father CAD (coronary artery disease) Grandmother Brain cancer Mother Colon cancer Family/Other Cancer Social History details: (2011), one son, disabled due to back injury household members: family Smoking Status: Current every day smoker alcohol intake: never Smoking Status: Current every day smoker Substance Use Type: marijuana Exam Initial Vital Signs Initial Vital Signs: Vital Signs Pulse Rate 62 02/17/24 13:08 Pulse Oximetry 98 02/17/24 13:08 Const: Awake, alert, in severe distress, clutching her chest Cardiac: regular rate, regular rhythm RESP: clear bilaterally, no wheezing GI: Soft, nontender, nondistended Skin: Warm, Dry, intact, no rashes Neuro: AO x3, CN II-XII grossly intact, moves all extremities Course Orders Ordered: Discontinued Medications Acetaminophen (Acetaminophen 325 Mg Tablet) 650 mg PO Q6H PRN PRN Reason: Fever/Mild Pain (1-3) Albuterol (Albuterol 2.5 Mg/3 Ml Neb (Adult)) 2.5 mg INH RTQ6HR PRN PRN Reason: Bronchospasm Albuterol (Albuterol 2.5 Mg/3 Ml Neb (Adult)) 2.5 mg INH NOW PRN PRN Reason: Coughing, Wheezing, Dyspnea Albuterol/Ipratropium (Albuterol/Ipratropium 3 Ml Ampul) 3 ml INH [id number] ELENI Albuterol/Ipratropium (Albuterol/Ipratropium 3 Ml Ampul) 3 ml INH RTQ2HR PRN PRN Reason: Shortness Of Breath Aspirin (Aspirin 81 Mg Chew Tab) 324 mg PO NOW ONE Stop: 02/17/24 13:08 Last Admin: 02/17/24 13:21 Dose: 324 mg Documented By: RB Benzocaine (Benzocaine/Menthol 1 Kade Pkt) 1 each PO PRN PRN PRN Reason: Sore Throat Bupivacaine HCl 30 ml/ (Epinephrine HCl 0.15 mg) 0 ml INJ NOW ONE Stop: 02/18/24 12:26 Last Admin: 02/18/24 12:25 Dose: 20 ml Documented By: PF Cyclobenzaprine HCl (Cyclobenzaprine 10 Mg Tablet) 10 mg PO TID PRN PRN Reason: Spasms Last Admin: 02/18/24 00:56 Dose: 10 mg Documented By: CT Diphenhydramine HCl (Diphenhydramine 25 Mg Tablet) 25 mg PO BEDTIME ELENI Last Admin: 02/18/24 00:55 Dose: 25 mg Documented By: CT Fentanyl (Fentanyl 100 Mcg/2 Ml Inj) 0 mcg IV Q5M PRN PRN Reason: Pain, Severe (7-10) Hydralazine HCl (Hydralazine 20 Mg/Ml Vial) 10 mg IV Q6HR PRN PRN Reason: Hypertension Hydromorphone HCl (Hydromorphone 1 Mg Inj) 1 mg IV NOW ONE Stop: 02/18/24 00:04 Last Admin: 02/18/24 00:09 Dose: 1 mg Documented By: CT Hydromorphone HCl (Hydromorphone 1 Mg Inj) 1 mg IV NOW ONE Stop: 02/18/24 08:06 Last Admin: 02/18/24 08:33 Dose: 1 mg Documented By: CW Hydromorphone HCl (Hydromorphone 1 Mg Inj) 0 mg IV Q5MIN PRN PRN Reason: Pain, Moderate (4-6) Hydroxyzine HCl (Hydroxyzine 50 Mg/Ml Inj) 25 mg IM NOW PRN PRN Reason: Pain, Mild (1-3) Piperacillin Sod/Tazobactam (Sod 3.375 gm/ Sodium Chloride) 100 mls @ 25 mls/hr IV NOW ONE Stop: 02/17/24 17:44 Last Admin: 02/17/24 18:27 Dose: 25 mls/hr Documented By: TODD Dextrose/Sodium Chloride (Dextrose 5%-0.9% Ns) 1,000 mls @ 100 mls/hr IV CONT ELENI Last Admin: 02/18/24 04:31 Dose: 100 mls/hr Documented By: Infusion: 02/18/24 04:31 Dose: Infused Documented By: Admin: 02/17/24 18:31 Dose: 100 mls/hr Documented By: TODD Piperacillin Sod/Tazobactam (Sod 3.375 gm/ Sodium Chloride) 100 mls @ 25 mls/hr IV Q8H ELENI Last Infusion: 02/18/24 13:13 Dose: Infused Documented By: Admin: 02/18/24 09:57 Dose: 25 mls/hr Documented By: Infusion: 02/18/24 06:49 Dose: Infused Documented By: Admin: 02/18/24 02:37 Dose: 25 mls/hr Documented By: CT Lactated Ringer's (Lactated Ringers) 1,000 mls @ 42 mls/hr IV CONT ELENI Last Admin: 02/18/24 13:40 Dose: Not Given Documented By: LAUREN Lactated Ringer's (Lactated Ringers) 1,000 mls @ 42 mls/hr IV CONT ELENI Last Infusion: 02/18/24 13:13 Dose: Infused Documented By: Admin: 02/18/24 11:46 Dose: 42 mls/hr Documented By: CG Acetaminophen (Ofirmev) 1,000 mg in 100 mls @ 400 mls/hr IV NOW ONE Stop: 02/18/24 12:37 Last Admin: 02/18/24 12:24 Dose: 400 mls/hr Documented By: ALYSA Lactated Ringer's (Lactated Ringers) 1,000 mls @ 120 mls/hr IV CONT ELENI Last Admin: 02/18/24 13:46 Dose: 120 mls/hr Documented By: LAUREN Ipratropium [place] (Ipratropium 0.5 Mg/2.5 Ml Neb) 0.5 mg INH Q4HRWA [facility] Ipratropium [place] (Ipratropium 0.5 Mg/2.5 Ml Neb) 0.5 mg INH RTQ2HR PRN PRN Reason: Shortness Of Breath Ketorolac Tromethamine (Ketorolac 30 Mg/Ml Vial) 15 mg IV NOW ONE Stop: 02/17/24 16:25 Last Admin: 02/17/24 16:33 Dose: 15 mg Documented By: ERIKA Ketorolac Tromethamine (Ketorolac 30 Mg/Ml Vial) 15 mg IV NOW ONE Stop: 02/18/24 01:02 Last Admin: 02/18/24 01:20 Dose: 15 mg Documented By: CHAI Lidocaine (Lidocaine 5% Patch) 1 each TOP NOW ONE Stop: 02/17/24 15:05 Last Admin: 02/17/24 15:07 Dose: 1 each Documented By: ERIKA Meperidine HCl (Meperidine 50 Mg/Ml Inj) 12.5 mg IV PACUNOW PRN PRN Reason: Mild pain or shivering Metoclopramide HCl (Metoclopramide 10 Mg/2 Ml Inj) 10 mg IV NOW PRN PRN Reason: Nausea And Vomiting Metoprolol Succinate (Metoprolol Er 50 Mg Tablet) 50 mg PO DAILY [facility] Last Admin: 02/18/24 09:09 Dose: 50 mg Documented By: Admin: 02/18/24 00:55 Dose: 50 mg Documented By: CHAI Morphine Sulfate (Morphine 4 Mg/Ml Inj) 4 mg IV NOW ONE Stop: 02/17/24 13:17 Last Admin: 02/17/24 13:24 Dose: Not Given Documented By: CRISTHIAN Naloxone HCl (Naloxone 0.4 Mg/Ml Vial) 0.2 mg IV Q2MIN PRN PRN Reason: Opiate Reversal Nicotine (Nicotine 21 Mg Patch) 21 mg TOP DAILY [facility] Last Admin: 02/18/24 09:08 Dose: 21 mg Documented By: Admin: 02/17/24 18:46 Dose: 21 mg Documented By: TODD Non-Formulary Medication (Disabled Parking Permit) 1 each Not Applicable DAILY [facility] Non-Formulary: Terbinafine 250 Mg Tablet 250 mg PO DAILY [facility] Last Admin: 02/18/24 09:09 Dose: Not Given Documented By: CW Non-Formulary Medication (Tiotropium [place] [Spiriva With Handihaler]) 1 cap INHALATION DAILY ELENI Non-Formulary Medication (Umeclidinium-Vilanterol [Anoro Ellipta]) 1 inhalation INHALATION DAILY [facility] Ondansetron HCl (Ondansetron 4 Mg/2 Ml Inj) 4 mg IV NOW ONE Stop: 02/17/24 16:25 Last Admin: 02/17/24 16:33 Dose: 4 mg Documented By: ERIKA Ondansetron HCl (Ondansetron 4 Mg/2 Ml Inj) 4 mg IV Q4HR PRN PRN Reason: Nausea And Vomiting Last Admin: 02/18/24 11:25 Dose: 4 mg Documented By: Admin: 02/17/24 23:00 Dose: 4 mg Documented By: CT Ondansetron HCl (Ondansetron 4 Mg/2 Ml Inj) 4 mg IV NOW PRN PRN Reason: Nausea And Vomiting Oxycodone HCl (Oxycodone Ir 5 Mg Tablet) 5 mg PO Q3H PRN PRN Reason: Pain, Moderate (4-6) Last Admin: 02/18/24 06:41 Dose: 5 mg Documented By: Admin: 02/17/24 21:23 Dose: 5 mg Documented By: CT Oxycodone HCl (Oxycodone 5 Mg/5 Ml Oral Solution) 10 mg PO Q4HR PRN PRN Reason: Pain, Severe (7-10) Oxycodone HCl (Oxycodone Ir 10 Mg Tablet) 10 mg PO Q4HR PRN PRN Reason: Pain, Severe (7-10) Last Admin: 02/18/24 11:00 Dose: 10 mg Documented By: Admin: 02/18/24 03:38 Dose: 10 mg Documented By: Admin: 02/17/24 23:07 Dose: 10 mg Documented By: CT Oxycodone HCl (Oxycodone Ir 5 Mg Tablet) 5 mg PO PACUNOW PRN PRN Reason: Mild or moderate pain Vital Signs Vital signs: Vital Signs - 8 hr 02/17/24 13:08 02/17/24 13:09 02/17/24 13:09 Temperature Pulse Rate 62 62 Respiratory Rate Blood Pressure 197/96 H Pulse Oximetry 98 96 Oxygen Delivery Method 02/17/24 13:12 02/17/24 13:33 02/17/24 13:34 Temperature 98.3 F Pulse Rate 64 62 Respiratory Rate 16 Blood Pressure 197/96 H 217/105 H Pulse Oximetry 97 100 Oxygen Delivery Method Room Air 02/17/24 13:34 02/17/24 14:00 02/17/24 14:01 Temperature Pulse Rate 65 68 Respiratory Rate 29 H 40 H Blood Pressure 218/94 H Pulse Oximetry 100 94 Oxygen Delivery Method 02/17/24 14:01 02/17/24 14:30 02/17/24 14:31 Temperature Pulse Rate 62 62 Respiratory Rate 40 H 22 Blood Pressure 207/92 H Pulse Oximetry 95 97 Oxygen Delivery Method 02/17/24 14:31 02/17/24 15:11 02/17/24 15:12 Temperature Pulse Rate 60 53 L Respiratory Rate 24 30 H Blood Pressure 199/86 H Pulse Oximetry 94 99 Oxygen Delivery Method 02/17/24 15:12 02/17/24 15:30 02/17/24 15:30 Temperature Pulse Rate 52 L 59 L Respiratory Rate 34 H 38 H Blood Pressure 200/108 H Pulse Oximetry 98 99 Oxygen Delivery Method 02/17/24 16:00 02/17/24 16:01 02/17/24 16:01 Temperature Pulse Rate 55 L 62 Respiratory Rate 43 H 31 H Blood Pressure 203/95 H Pulse Oximetry Oxygen Delivery Method 02/17/24 16:30 02/17/24 16:31 02/17/24 16:31 Temperature Pulse Rate 65 68 Respiratory Rate 33 H 27 H Blood Pressure 189/90 H Pulse Oximetry 96 97 Oxygen Delivery Method 02/17/24 17:00 02/17/24 17:01 02/17/24 17:01 Temperature Pulse Rate 62 62 Respiratory Rate 29 H 33 H Blood Pressure 177/79 H Pulse Oximetry 96 96 Oxygen Delivery Method MDM - Chest Pain Differential Diagnosis Differential diagnosis: Likely pneumothorax, unstable angina pectoris and costochondritis Lab Data 02/18/24 05:26 02/18/24 05:26 Labs: Lab Results 02/17/24 02/17/24 02/17/24 Range/Units 13:00 13:10 15:10 WBC 16.7 H (4.5-11.0) X10^3/uL RBC 4.83 (4.0-5.2) X10^6/uL Hgb 15.6 (12.0-16.0) g/dL Hct 45.6 (36-46) % MCV 94.4 (80-100) fL MCH 32.2 (26-34) PG MCHC 34.2 (30-36) % RDW 14.5 (11.6-14.8) % Plt Count 373 (150-400) X10^3/uL Neut % (Auto) 72.6 (50-75) % Lymph % (Auto) 22.9 L (25-40) % [place] % (Auto) 3.8 (3-14) % Eos % (Auto) 0.2 L (2-4) % Baso % (Auto) 0.5 (0-2) % Neut # (Auto) 74537 H (7157-7734) /uL Lymph # (Auto) 3800 (6069-1978) /uL [place] # (Auto) 600 (0-900) /uL Eos # (Auto) 0 (0-450) /uL Baso # (Auto) 100 (0-100) /uL PT 12.1 (9.4-12.5) SECONDS INR 1.1 (0.9-1.3) APTT 34 (25.1-36.5) SECONDS Sodium 137 (137-145) mmol/L Potassium 3.8 (3.4-5.1) mmol/L Chloride 101 (98-107) mmol/L Carbon Dioxide 27 (22-32) mmol/L BUN 7 (7-17) mg/dL Creatinine 0.59 (0.52-1.04) mg/dL Estimated GFR > 60 (>60) mL/min BUN/Creatinine Ratio 11.9 (6-22) Glucose 155 H (80-110) mg/dL Lactate 1.6 (0.7-2.1) mmol/L Calcium 9.3 (8.4-10.2) mg/dL Magnesium 1.9 (1.6-2.3) mg/dL Total Bilirubin 0.5 (0.2-1.3) mg/dL AST 18 (14-36) IU/L ALT 14 (<35) IU/L Alkaline Phosphatase 106 (38-126) U/L Total Creatine Kinase 30 (30-135) U/L Troponin I < 0.012 (0.01-0.034) ng/mL NT-Pro-B Natriuret Pep 336 H (<125) pg/mL Total Protein 7.7 (6.3-8.2) g/dL Albumin 4.7 (3.5-5.0) g/dL Globulin 3.0 (1.7-4.1) g/dL Albumin/Globulin Ratio 1.6 (1.0-2.8) Lipase 26 (23-300) U/L Urine Color Yellow Urine Appearance Clear Urine pH 8.0 (4.5-8.0) Ur Specific Friend 1.010 (1.000-1.035) Urine Protein Negative (Negative) Urine Glucose (UA) Negative (Negative) g/dL Urine Ketones Negative (NEGATIVE) Urine Occult Blood 1+ H (Negative) Urine Nitrate Negative (Negative) Urine Bilirubin Negative (NEGATIVE) Urine Urobilinogen 0.2 (0.2) E.U./dL Ur Leukocyte Esterase Trace H (NEGATIVE) Urine RBC 0-1/hpf (0-5/HPF) Urine WBC 1-5/hpf (0-5/HPF) Ur Squamous Epith Cells None seen (0-5/HPF) Amorphous Sediment 1+ Urine Bacteria None seen (None) Ur Culture Indicated? Cult not indicated Vol Urine Centrifuged 10ml (spun) Imaging Data CT scan - chest: Radiologist's Impression: PROCEDURE: CT ANGIO CHEST ABDOMEN PELVIS INDICATIONS: CHEST TO BACK PAIN TECHNIQUE: Precontrast 5 mm thick sections acquired from the lung apices to the iliac crests. After the administration of intravenous contrast, 2.5 mm thick sections again acquired from the lung apices to the iliac crests. Maximum intensity projection (MIP) oblique sagittal and coronal reformats were then acquired. For radiation dose reduction, the following was used: automated exposure control. COMPARISON: None. FINDINGS: Image quality: Diagnostic. AORTA and its attachments: Thoracic and abdominal aorta are of normal caliber without aneurysm or dissection. Classic three-vessel arch anatomy. Great vessel origins are widely patent. SMA, celiac, BALJEET, and bilateral renal arteries are patent. Mild diffuse iliac disease bilaterally. There may be as much as a moderate focal stenosis of the external iliacs bilaterally. 1: No acute pulmonary emboli. CHEST: Lower Neck: No enlarged lymph nodes. Thyroid: No thyroid nodules which require sonographic evaluation. Axillae: No enlarged lymph nodes. Chest Wall: Unremarkable. Lungs and Pleura: No pneumothorax or pleural effusions. Moderate emphysematous change. There is also a degree of mild pulmonary interstitial fibrosis. No focal pulmonary infiltrates. No suspicious pulmonary nodules. Heart: Borderline cardiomegaly with right atrial enlargement. No pericardial effusion. Thoracic Vessels: Pulmonary arteries demonstrate normal size. Mediastinum and Valeria: No enlarged lymph nodes. Esophagus: No wall thickening. No hiatal hernia. ABDOMEN: Liver: No solid mass. Gallbladder: The gallbladder is not abnormally distended. However, there is gallbladder wall thickening and possible gallbladder wall edema. Biliary ducts: No biliary dilation. Pancreas: No ductal dilation. Spleen: Size is within normal limits. Adrenal Glands: No adrenal nodules. Kidneys and Ureters: No hydronephrosis. No solid mass. No complex renal cystic lesion which requires follow up. Stomach and Bowel: Normal colonic caliber, without significant wall thickening. Peritoneum: No abnormal intraperitoneal fluid. No free air. Ventral Wall: No hernia. Abdominal Nodes: No retroperitoneal or mesenteric adenopathy by size criteria. Vessels: Inferior vena cava is normal in size. PELVIS: Pelvic Organs: Unremarkable. Bladder: Unremarkable. Pelvic Nodes: No enlarged lymph nodes. Miscellaneous: No inguinal hernias are seen. Bones: Unremarkable. IMPRESSION: 1. No significant abnormality noted involving the thoracic and abdominal aorta. 2. Moderate emphysematous change and mild pulmonary interstitial fibrosis. 3. No acute abnormality in the chest. 4. Borderline cardiomegaly with right atrial enlargement. 5. Although the gallbladder is not distended. There is gallbladder wall thickening and a somewhat edematous appearance of the gallbladder. 6. No other potentially significant acute findings in the abdomen and pelvis. Comment: Consider right upper quadrant ultrasound if suspect acute cholecystitis. Dictated by: Jian Ovalles M.D. on 02/17/2024 at 13:47 Approved by: Jian Ovalles M.D. on 02/17/2024 at 14:15 US - abdomen: Radiologist's Impression: PROCEDURE: US ABDOMEN LIMITED INDICATIONS: R SIDED CHEST/BACK PAIN, EDEMATOUS GB ON CT TECHNIQUE: Real-time scanning was performed of the abdominal and retroperitoneal organs, with image documentation. COMPARISON: [facility], CT, CT ANGIO CHEST ABDOMEN PELVIS, 02/17/2024, 13:26. FINDINGS: Liver: Liver is normal in size and homogeneous in echotexture. Gallbladder: Multiple gallstones and sludge are present. A non mobile 1.2 cm calculus is seen in the gallbladder neck. Gallbladder wall measures 4 mm in thickness. No definite pericholecystic fluid. Sonographic Yan sign is positive. Biliary ducts: Intrahepatic bile ducts are non-dilated. Extrahepatic bile duct caliber measures 8 mm. Normal is 6-7 mm or less in diameter, or 10 mm or less post-cholecystectomy. Pancreas: Visualized portions of the pancreas are sonographically normal. Miscellaneous: No free abdominal fluid. IMPRESSION: 1. Cholelithiasis with findings suspicious for acute cholecystitis including gallbladder wall thickening and positive sonographic Yan sign. Recommend correlation with clinical and laboratory values. 2. Borderline dilated common bile duct. If there are laboratory signs of biliary obstruction, MRCP could be performed for further evaluation. Approved by: Gonzalo Vaughn M.D. on 02/17/2024 at 16:23 MDM Narrative Medical decision making narrative: Patient presenting for severe right-sided chest pain radiating to her back. Based on the patient's severity of discomfort as well as her symptoms a stat CT angio was ordered to assess for possible dissection. Pain medications ordered. CT angio negative for dissection, however an edematous gallbladder is noted. Patient's pain now seems to have localized to her right upper quadrant rather than her right chest. Ultrasound of the abdomen ordered. Patient declined morphine, Toradol ordered for pain. Lab work shows WBC count 14.9, normal electrolytes, normal liver enzymes. Ultrasound of the gallbladder is concerning for acute cholecystitis. Discussed case with on-call general surgeon Dr. Kincaid, who requested admission to medical service and can take out gallbladder tomorrow. IV antibiotics ordered. Discharge Plan Departure Patient Disposition: Admitted as Observation Clinical Impression: Acute cholecystitis Admit Date/Time: 02/17/24 17:05 Admit Provider: Elkin Tai
[2024-02-17 13:35] LABS: PTT Partial Thromboplastin Tim 34 SECONDS (25.1-36.5)
[2024-02-17 13:37] LABS: Alanine Aminotransferase 14 IU/L (<35); Albumin 4.7 g/dL (3.5-5.0); Albumin Globulin Ratio 1.6 (1.0-2.8); Alkaline Phosphatase 106 U/L (38-126); Aspartate Aminotransferase 18 IU/L (14-36); BUN Creatinine Ratio 11.9 (6-22); Bilirubin Total 0.5 mg/dL (0.2-1.3); Blood Urea Nitrogen 7 mg/dL (7-17); Calcium 9.3 mg/dL (8.4-10.2); Carbon Dioxide 27 mmol/L (22-32); Chloride 101 mmol/L (98-107); Creatine Kinase 30 U/L (30-135); Estimated Glomerular Filt Rate > 60 mL/min (>60); Glucose 155 mg/dL (80-110); HEMOLYSIS < 15 (0-50); Lipase 26 U/L (23-300); Magnesium 1.9 mg/dL (1.6-2.3); Potassium 3.8 mmol/L (3.4-5.1); Sodium 137 mmol/L (137-145); Total Protein 7.7 g/dL (6.3-8.2)
[2024-02-17 13:49] LABS: NT-proBNP (BNP-Adult 18+) 336 pg/mL (<125); Troponin I < 0.012 ng/mL (0.01-0.034)
--- NOTE | 2024-02-17 14:18 | DI.US.S_ITS ---
PROCEDURE: US ABDOMEN LIMITED INDICATIONS: R SIDED CHEST/BACK PAIN, EDEMATOUS GB ON CT TECHNIQUE: Real-time scanning was performed of the abdominal and retroperitoneal organs, with image documentation. COMPARISON: [facility], CT, CT ANGIO CHEST ABDOMEN PELVIS, 02/17/2024, 13:26. FINDINGS: Liver: Liver is normal in size and homogeneous in echotexture. Gallbladder: Multiple gallstones and sludge are present. A non mobile 1.2 cm calculus is seen in the gallbladder neck. Gallbladder wall measures 4 mm in thickness. No definite pericholecystic fluid. Sonographic Yan sign is positive. Biliary ducts: Intrahepatic bile ducts are non-dilated. Extrahepatic bile duct caliber measures 8 mm. Normal is 6-7 mm or less in diameter, or 10 mm or less post-cholecystectomy. Pancreas: Visualized portions of the pancreas are sonographically normal. Miscellaneous: No free abdominal fluid. IMPRESSION: 1. Cholelithiasis with findings suspicious for acute cholecystitis including gallbladder wall thickening and positive sonographic Yan sign. Recommend correlation with clinical and laboratory values. 2. Borderline dilated common bile duct. If there are laboratory signs of biliary obstruction, MRCP could be performed for further evaluation. Approved by: Gonzalo Vaughn M.D. on 02/17/2024 at 16:23
[2024-02-17] MEDS: LIDOCAINE 5% PATCH 1 EACH TOP (15:07)
[2024-02-17 15:18] LABS: Appearance Urine UA CLEAR; Bilirubin Urine UA NEGATIVE (NEGATIVE); Color Urine UA YELLOW; Glucose Urine UA NEGATIVE (Negative); Ketones Urine UA NEGATIVE (NEGATIVE); Leukocyte Esterase Urine UA TRACE (NEGATIVE); Nitrite Urine UA NEGATIVE (Negative); Occult Blood Urine UA 1+ (Negative); Protein Urine UA NEGATIVE (Negative); Urobilinogen Urine UA 0.2 E.U./dL (0.2)
[2024-02-17 15:28] LABS: Amorphous Sediment Urine 1+; Bacteria Urine None Seen; Culture Indicated Urine Cult Not Indicated; RBC Urine 0-1/HPF (0-5/HPF); Squamous Epithelial Cell Urine None Seen (0-5/HPF); Urine Volume 10mL (spun); WBC Urine 1-5/HPF (0-5/HPF)
[2024-02-17] MEDS: KETOROLAC 30 MG/ML VIAL 15 MG IV (16:33)
[2024-02-17] MEDS: ONDANSETRON 4 MG/2 ML INJ IV ×2 (16:33→23:00)
[2024-02-17 17:19] LABS: Lactate (Lactic Acid) 1.6 mmol/L (0.7-2.1)
--- NOTE | 2024-02-17 17:46 | PM.HP.1 ---
History of Present Illness History of Present Illness Chief complaint: chest px, sob, vomiting Narrative: From ED doctor: 63-year-old female with history of COPD, hypertension, hyperlipidemia presents by private vehicle from home for right-sided chest pain that radiates to her back. Patient arrives writhing, clutching her chest. symptoms began earlier this morning and woke her up from sleep. Nothing made the pain better and so she came to the emergency department for evaluation. Stat CT angio ordered for dissection evaluation due to the patient's report of pain as well as the severity. . ED course: Imaging was suggestive of cholecystitis. Analgesia and IV antibiotics were given. Dr. Kincaid of surgery was consulted and we will be performing cholecystectomy on February 17. Additional information: She was having some right upper quadrant symptoms with the last several days after eating. She was also having some heartburn. Today she initially had chest pain but then it became more abdominal. Imaging was consistent with cholecystitis. She initially was tender in the right upper quadrant but after pain med she was relatively nontender now. She denies history of gallbladder disease or episodes. No clear family history of gallbladder disease. She smokes about 2 packs of cigarettes a day. She takes a maintenance inhaler and rarely has to use as needed albuterol. No recent difficulties with cough, fevers chills, or dyspnea. FOR[facility]LY [facility] Medical History COPD (chronic obstructive pulmonary disease) Family history of colitis in mother Leukocytosis Tobacco use Family history of colon cancer in mother History of colonic polyps Menopausal syndrome Allergic rhinitis Depression Pneumonia (~03/2016) Chronic pain Cervical spine disease Chronic back pain Asthma Shoulder pain Colon polyps GERD (gastroesophageal reflux disease) Hyperlipemia Surgical History Status post colposcopy Family History Brother Small cell lung cancer Father CAD (coronary artery disease) Grandmother Brain cancer Mother Colon cancer Family/Other Cancer Social History details: (2011), one son, disabled due to back injury Smoking Status: Current every day smoker Meds Home Medications and Allergies Home Medications Medication Instructions Recorded Confirmed Type cetirizine 10 mg tablet 10 mg PO QAM #90 tabs 09/01/16 11/24/23 Rx acetaminophen 325 mg tablet 350 mg PO Q4H PRN Pain (Scale 01/11/17 11/24/23 History Score 1-3) ##0 ibuprofen 100 mg tablet 100 mg PO Q4H PRN Pain (Scale 01/11/17 11/24/23 History Score 1-3) ##0 oxycodone 10 mg tablet 10 mg PO QID #112 tabs 06/21/17 11/24/23 History cyclobenzaprine 10 mg tablet 10 mg PO TID PRN UNKNOWN 01/12/18 11/24/23 History nebulizer and compressor 01/12/18 11/24/23 History albuterol sulfate 90 mcg/actuation 2 puff inhalation Q6H PRN 10/16/21 11/24/23 Rx aerosol inhaler bronchospasm #25.5 grams tiotropium bromide 18 mcg capsule 1 cap inhalation DAILY 10/16/21 11/24/23 History with inhalation device (Spiriva with HandiHaler) Disabled Parking Permit 1 ea Not Applicable DAILY #1 ea 01/25/23 11/24/23 Rx chlorhexidine gluconate 0.12 % PO 04/28/23 11/24/23 History mouthwash atorvastatin 10 mg tablet (Lipitor) 10 mg PO HS #90 tabs 08/10/23 11/24/23 Rx metoprolol succinate 50 mg 50 mg PO QDAY #90 tabs 08/10/23 11/24/23 Rx tablet,extended release 24 hr terbinafine HCl 250 mg tablet 250 mg PO DAILY #30 tabs 10/20/23 11/24/23 Rx umeclidinium 62.5 mcg-vilanterol 1 inh inhalation DAILY #90 ea 10/20/23 11/24/23 Rx 25 mcg/actuation powdr for inhalation (Anoro Ellipta) amlodipine 5 mg tablet 5 mg PO DAILY #90 tabs 12/07/23 Rx Allergies Allergy/AdvReac Type Severity Reaction Status Date / Time cefuroxime Allergy Mild Verified 02/17/24 13:15 codeine Allergy Mild Verified 02/17/24 13:15 gabapentin Allergy Mild Verified 02/17/24 13:15 varenicline AdvReac Intermediate Vomiting Verified 02/17/24 13:15 morphine [MORPHINE] AdvReac Unknown stomach Verified 02/17/24 13:15 ache Review of Systems Review of Systems Narrative: All else reviewed and otherwise unremarkable except as noted in the history and physical. Exam Vital Signs (past 8 hours): - 02/17/24 13:08 02/17/24 13:09 02/17/24 13:09 Temperature Pulse Rate 62 62 Respiratory Rate Blood Pressure 197/96 H Pulse Oximetry 98 96 Oxygen Delivery Method 02/17/24 13:12 02/17/24 13:33 02/17/24 13:34 Temperature 98.3 F Pulse Rate 64 62 Respiratory Rate 16 Blood Pressure 197/96 H 217/105 H Pulse Oximetry 97 100 Oxygen Delivery Method Room Air 02/17/24 13:34 02/17/24 14:00 02/17/24 14:01 Temperature Pulse Rate 65 68 Respiratory Rate 29 H 40 H Blood Pressure 218/94 H Pulse Oximetry 100 94 Oxygen Delivery Method 02/17/24 14:01 02/17/24 14:30 02/17/24 14:31 Temperature Pulse Rate 62 62 Respiratory Rate 40 H 22 Blood Pressure 207/92 H Pulse Oximetry 95 97 Oxygen Delivery Method 02/17/24 14:31 02/17/24 15:11 02/17/24 15:12 Temperature Pulse Rate 60 53 L Respiratory Rate 24 30 H Blood Pressure 199/86 H Pulse Oximetry 94 99 Oxygen Delivery Method 02/17/24 15:12 02/17/24 15:30 02/17/24 15:30 Temperature Pulse Rate 52 L 59 L Respiratory Rate 34 H 38 H Blood Pressure 200/108 H Pulse Oximetry 98 99 Oxygen Delivery Method 02/17/24 16:00 02/17/24 16:01 02/17/24 16:01 Temperature Pulse Rate 55 L 62 Respiratory Rate 43 H 31 H Blood Pressure 203/95 H Pulse Oximetry Oxygen Delivery Method 02/17/24 16:30 02/17/24 16:31 02/17/24 16:31 Temperature Pulse Rate 65 68 Respiratory Rate 33 H 27 H Blood Pressure 189/90 H Pulse Oximetry 96 97 Oxygen Delivery Method 02/17/24 17:00 02/17/24 17:01 02/17/24 17:01 Temperature Pulse Rate 62 62 Respiratory Rate 29 H 33 H Blood Pressure 177/79 H Pulse Oximetry 96 96 Oxygen Delivery Method Oxygen Delivery Method Room Air Narrative Exam Narrative: NAD, alert and oriented, fluent speech, calm. Normocephalic skull, EOMI, anicteric sclera, symmetric pupils. Oropharynx unremarkable, no droop. Neck supple, midline trachea, no adenopathy. Lungs clear, normal rate and effort. Slightly globally diminished breath sounds. Heart regular, no murmur gallop or rub. Abdomen is soft, non distended and non tender. Extremities are free of edema. Skin is free of rash or lesions. Joints are not swollen or deformed. Judgment appears to be normal. Objective ECG Impression: Sinus rhythm with 1st degree AV block Electronically Signed On 02-17-2024 17:14:24 PDT by Elkin Tai [facility] Multiple studies:: Radiologist's impression: Abdomen ultrasound: 1. Cholelithiasis with findings suspicious for acute cholecystitis including gallbladder wall thickening and positive sonographic Yan sign. Recommend correlation with clinical and laboratory values. 2. Borderline dilated common bile duct. If there are laboratory signs of biliary obstruction, MRCP could be performed for further evaluation. Chest abdomen pelvis CTA: 1. No significant abnormality noted involving the thoracic and abdominal aorta. 2. Moderate emphysematous change and mild pulmonary interstitial fibrosis. 3. No acute abnormality in the chest. 4. Borderline cardiomegaly with right atrial enlargement. 5. Although the gallbladder is not distended. There is gallbladder wall thickening and a somewhat edematous appearance of the gallbladder. 6. No other potentially significant acute findings in the abdomen and pelvis. Chest x-ray: No acute cardiopulmonary abnormality is seen. Labs 02/17/24 13:10 02/17/24 13:10 Labs: Laboratory Results - last 24 hr 02/17/24 02/17/24 02/17/24 13:00 13:10 15:10 WBC 16.7 H RBC 4.83 Hgb 15.6 Hct 45.6 MCV 94.4 MCH 32.2 MCHC 34.2 RDW 14.5 Plt Count 373 Neut % (Auto) 72.6 Lymph % (Auto) 22.9 L [place] % (Auto) 3.8 Eos % (Auto) 0.2 L Baso % (Auto) 0.5 Neut # (Auto) 96584 H Lymph # (Auto) 3800 [place] # (Auto) 600 Eos # (Auto) 0 Baso # (Auto) 100 PT 12.1 INR 1.1 APTT 34 Sodium 137 Potassium 3.8 Chloride 101 Carbon Dioxide 27 BUN 7 Creatinine 0.59 Estimated GFR > 60 BUN/Creatinine Ratio 11.9 Glucose 155 H Lactate 1.6 Calcium 9.3 Magnesium 1.9 Total Bilirubin 0.5 AST 18 ALT 14 Alkaline Phosphatase 106 Total Creatine Kinase 30 Troponin I < 0.012 NT-Pro-B Natriuret Pep 336 H Total Protein 7.7 Albumin 4.7 Globulin 3.0 Albumin/Globulin Ratio 1.6 Lipase 26 Urine Color Yellow Urine Appearance Clear Urine pH 8.0 Ur Specific [place] 1.010 Urine Protein Negative Urine Glucose (UA) Negative Urine Ketones Negative Urine Occult Blood 1+ H Urine Nitrate Negative Urine Bilirubin Negative Urine Urobilinogen 0.2 Ur Leukocyte Esterase Trace H Urine RBC 0-1/hpf Urine WBC 1-5/hpf Ur Squamous Epith Cells None seen Amorphous Sediment 1+ Urine Bacteria None seen Ur Culture Indicated? Cult not indicated Vol Urine Centrifuged 10ml (spun) Assessment & Plan Assessment & Plan narrative: 1. Acute cholecystitis, present on admission and active. 2. COPD, present on admission and stable. No exacerbation. 3. Leukocytosis, present on admission and active. Likely relates to cholecystitis. 4. GERD, present on admission and stable. 5. HLD, present on admission and stable. PLAN: -NPO, IV fluids. -IV antibiotics. -surgical consult for cholecystectomy on February 17. Dr. Kincaid is aware. Observation status, anticipate 1 night of hospital necessity. Full resuscitation. PERRY, dispo: Anticipate discharge home on February 17 of surgery goes well. Time-Based Coding :: 35 min spent with patient and on the chart (including review of chart, obtaining history, exam, reviewing outside data, placing orders, documenting exam and treatment plan, and counseling patient) on 02/16. Quality MIPS - Admit I confirm the patient?s Advance Care Plan is present, Code status is documented, Surrogate decision maker is in patient?s record [If Yes, STOP here]: Yes MIPS - Meds 'Current medications' to include all prescriptions, [id number] products, herbals, cannabis/cannabidiol products, and vitamin/mineral/dietary (nutritional) supplements. I have utilized all available resources to obtain, update, or review the patient?s current medications. [If Yes, STOP here]: Yes
--- NOTE | 2024-02-17 17:58 | PC.NURSE ---
Day shift: Pt in room from ED at approx 1750. She is A&Ox4. Being seen by Dr Tai as this note is written. She states I feel much better and has no complaints or concerns at this time. OK for a few ice chips now per Dr Tai. Tolerating SCD's. Likely will have gallbladder removed but unsure at this time. Pt steady on feet and can be independent in room for now. Will continue with plan of care.
[2024-02-17] MEDS: PIPERACILLIN/TAZO 3.375 GM in SODIUM CHLORIDE 0.9% 100 ML IV (18:27)
[2024-02-17] MEDS: DEXTROSE 5%-0.9% NS 1,000 ML 100 ML IV (18:31)
[2024-02-17] MEDS: NICOTINE 21 MG PATCH TOP (18:46)
[2024-02-17] MEDS: OXYCODONE IR 5 MG TABLET PO (21:23)
[2024-02-17] MEDS: OXYCODONE IR 10 MG TABLET PO (23:07)
[2024-02-18] VITALS (19 sets, daily range): BP systolic 95–177; BP diastolic 46–88; PULSE 51–90; RESP 12–24; TEMP 35.5–37; O2SAT 92–100; BMI 22.8
--- NOTE | 2024-02-18 | PATH_ITS ---
[facility] Accession Number: [id number] No. of containers..01 Tissue . 01 Material submitted: . gallbladder - GALLBLADDER . 01 Diagnosis: GALLBLADDER, CHOLECYSTECTOMY: Acute on chronic cholecystitis. Cholelithiasis. MRV 02/21/2024 1216 Local . 01 Electronically signed: . Janneth Deluna MD, Pathologist NPI- [id number] . 01 Gross description: . The specimen is received in formalin labeled with two patient identifiers and gallbladder, and consists of a 5.2 x 2.8 x 2.4 cm unopened gallbladder. The serosal surface is collazo-white, smooth, glistening with speckled areas of hemorrhage. The cystic duct is stapled and is inked blue. The cauterized liver bed surface is inked black. The specimen is sectioned to show a 1.0 x 0.9 x 0.8 cm yellow granular gallstone embedded in the cystic duct orifice. The remaining gallbladder wall is white, thickened, slightly fibrotic measuring up to 0.4 cm in thickness. The mucosa is collazo-white, finely granular, and the lumen is filled with approximately 20 cc of yellow to viscid pus-like bile. [employer] Assistant sections are submitted in cassette A1 to include blue-inked cystic duct margin. ([id number]) /SKY 02/20/2024 0532 Local . 01 Pathologist provided ICD-10: K80.10, K81.2 . 01 CPT . 489162 Specimen Comment: A courtesy copy of this report has been sent to [phone] Performed at: [address] [facility], [place], [place] [id number] MD Marcio Younger MD Phone: [phone]
[2024-02-18] MEDS: HYDROMORPHONE 1 MG INJ IV ×2 (00:09→08:33)
[2024-02-18] MEDS: diphenhydrAMINE 25 MG TABLET PO (00:55)
[2024-02-18] MEDS: METOPROLOL ER 50 MG TABLET PO ×2 (00:55→09:09)
[2024-02-18] MEDS: CYCLOBENZAPRINE 10 MG TABLET PO (00:56)
[2024-02-18] MEDS: KETOROLAC 30 MG/ML VIAL 15 MG IV (01:20)
[2024-02-18] MEDS: PIPERACILLIN/TAZO 3.375 GM in SODIUM CHLORIDE 0.9% 100 ML IV ×2 (02:37→09:57)
[2024-02-18] MEDS: OXYCODONE IR 10 MG TABLET PO ×2 (03:38→11:00)
[2024-02-18] MEDS: DEXTROSE 5%-0.9% NS 1,000 ML 100 ML IV (04:31)
[2024-02-18 05:39] LABS: Add Manual Diff / Slide Review NO; Basophils Absolute Auto 100 /uL (0-100); Basophils Percent Auto 0.7 % (0-2); Eosinophils Absolute Auto 0 /uL (0-450); Eosinophils Percent Auto 0.3 % (2-4); Hematocrit 43.5 % (36-46); Hemoglobin 14.9 g/dL (12.0-16.0); Lymphocytes Absolute Auto 4500 /uL (1100-4500); Lymphocytes Percent Auto 29.2 % (25-40); Mean Corpuscular HGB Conc 34.2 % (30-36); Mean Corpuscular Hemoglobin 32.4 PG (26-34); Mean Corpuscular Volume 94.7 fL (80-100); Monocytes Absolute Auto 1200 /uL (0-900); Monocytes Percent Auto 8.1 % (3-14); Neutrophils Absolute Auto 9600 /uL (1500-7000); Neutrophils Percent Auto 61.7 % (50-75); Platelet Count 298 X10^3/uL (150-400); Red Cell Distribution Width 14.4 % (11.6-14.8); White Blood Cell Count 15.5 X10^3/uL (4.5-11.0)
[2024-02-18 05:51] LABS: BUN Creatinine Ratio 8.1 (6-22); Blood Urea Nitrogen 5 mg/dL (7-17); Calcium 8.4 mg/dL (8.4-10.2); Carbon Dioxide 29 mmol/L (22-32); Chloride 104 mmol/L (98-107); Estimated Glomerular Filt Rate > 60 mL/min (>60); Glucose 127 mg/dL (80-110); HEMOLYSIS < 15 (0-50); Potassium 3.4 mmol/L (3.4-5.1); Sodium 138 mmol/L (137-145)
[2024-02-18] MEDS: OXYCODONE IR 5 MG TABLET PO (06:41)
[2024-02-18] MEDS: NICOTINE 21 MG PATCH TOP (09:08)
[2024-02-18] MEDS: ONDANSETRON 4 MG/2 ML INJ IV (11:25)
[2024-02-18] MEDS: LACTATED RINGERS 1,000 ML 42 ML IV (11:46)
--- NOTE | 2024-02-18 11:51 | PM.CN ---
History of Present Illness Consult details Date Patient Seen: 02/18/24 Time Patient Seen: 11:51 Chief complaint: chest px, sob, vomiting Reason for consult: Acute cholecystitis Requesting provider: Chelsi Contreras Narrative: Presented to the emergency department with right upper quadrant pain, right chest pain radiation to the back. The acute pain awoke her from sleep, however she has been having intermittent right upper quadrant pain over the last 3 days after eating. Nausea is associated. CT scan was performed with suggestion of acute cholecystitis. This was later confirmed with ultrasound. Liver function tests are within normal limits however her white blood cell count is 15. She has other comorbidities such as COPD, chronic pain, hypertension. There is also a lung nodule as an incidental finding in the chest. Meds Home Medications and Allergies Home Medications Medication Instructions Recorded Confirmed Type oxycodone 10 mg tablet 10 mg PO QID #112 tabs 06/21/17 02/17/24 History cyclobenzaprine 10 mg tablet 10 mg PO TID PRN Spasms 01/12/18 02/17/24 History nebulizer and compressor 01/12/18 02/17/24 History albuterol sulfate 90 mcg/actuation 2 puff inhalation Q6H PRN 10/16/21 02/17/24 Rx aerosol inhaler bronchospasm #25.5 grams tiotropium bromide 18 mcg capsule 1 cap inhalation DAILY 10/16/21 02/17/24 History with inhalation device (Spiriva with HandiHaler) Disabled Parking Permit 1 ea Not Applicable DAILY #1 ea 01/25/23 02/17/24 Rx atorvastatin 10 mg tablet (Lipitor) 10 mg PO HS #90 tabs 08/10/23 02/17/24 Rx metoprolol succinate 50 mg 50 mg PO QDAY #90 tabs 08/10/23 02/17/24 Rx tablet,extended release 24 hr terbinafine HCl 250 mg tablet 250 mg PO DAILY #30 tabs 10/20/23 02/17/24 Rx umeclidinium 62.5 mcg-vilanterol 1 inh inhalation DAILY #90 ea 10/20/23 02/17/24 Rx 25 mcg/actuation powdr for inhalation (Anoro Ellipta) amlodipine 5 mg tablet 5 mg PO DAILY #90 tabs 12/07/23 02/17/24 Rx Benadryl 25 mg PO QPM aller 02/17/24 02/17/24 History Allergies Allergy/AdvReac Type Severity Reaction Status Date / Time cefuroxime Allergy Mild Verified 02/17/24 13:15 codeine Allergy Mild Verified 02/17/24 13:15 gabapentin Allergy Mild Verified 02/17/24 13:15 varenicline AdvReac Intermediate Vomiting Verified 02/17/24 13:15 morphine [MORPHINE] AdvReac Unknown stomach Verified 02/17/24 13:15 ache Review of Systems Review of Systems ROS: Yes All systems reviewed with the patient and are negative except as otherwise documented Exam Vital Signs (past 8 hours): - 02/18/24 07:00 02/18/24 08:16 02/18/24 09:09 Temperature 97.6 F Pulse Rate 54 L 64 Respiratory Rate 22 Blood Pressure 123/62 123/61 Pulse Oximetry 96 Oxygen Delivery Method Room Air Oxygen Flow Rate 0 02/18/24 09:40 02/18/24 09:42 02/18/24 11:43 Temperature 98.6 F Pulse Rate 54 L 54 L 58 L Respiratory Rate 24 Blood Pressure 133/66 133/66 159/88 H Pulse Oximetry 98 Oxygen Delivery Method Room Air Oxygen Flow Rate Oxygen Delivery Method Room Air Oxygen Flow Rate 0 Const General: cooperative, No comfortable, acute distress and lethargic Nutritional Appearance: average body habitus HENNJ Head: normocephalic and atraumatic Ears: hearing grossly normal bilaterally Eyes Sclera: sclerae normal Neck Neck: normal visual inspection and trachea midline Resp Effort & Inspection: normal respiratory effort and able to speak in complete sentences Cardio Rate: bradycardic Rhythm: regular rhythm GI Inspection: non-distended Palpation: soft and tender (Right upper quadrant tenderness to palpation) Skin General: elasticity normal and turgor normal Neuro General: patient alert, patient awake and patient oriented x3 Psych Appearance: disheveled Affect: normal affect Judgment: judgment good Objective Labs 02/18/24 05:26 02/18/24 05:26 Labs: Laboratory Results - last 24 hr 02/17/24 02/17/24 02/17/24 13:00 13:10 15:10 WBC 16.7 H RBC 4.83 Hgb 15.6 Hct 45.6 MCV 94.4 MCH 32.2 MCHC 34.2 RDW 14.5 Plt Count 373 Neut % (Auto) 72.6 Lymph % (Auto) 22.9 L [place] % (Auto) 3.8 Eos % (Auto) 0.2 L Baso % (Auto) 0.5 Neut # (Auto) 67956 H Lymph # (Auto) 3800 [place] # (Auto) 600 Eos # (Auto) 0 Baso # (Auto) 100 PT 12.1 INR 1.1 APTT 34 Sodium 137 Potassium 3.8 Chloride 101 Carbon Dioxide 27 BUN 7 Creatinine 0.59 Estimated GFR > 60 BUN/Creatinine Ratio 11.9 Glucose 155 H Lactate 1.6 Calcium 9.3 Magnesium 1.9 Total Bilirubin 0.5 AST 18 ALT 14 Alkaline Phosphatase 106 Total Creatine Kinase 30 Troponin I < 0.012 NT-Pro-B Natriuret Pep 336 H Total Protein 7.7 Albumin 4.7 Globulin 3.0 Albumin/Globulin Ratio 1.6 Lipase 26 Urine Color Yellow Urine Appearance Clear Urine pH 8.0 Ur Specific [place] 1.010 Urine Protein Negative Urine Glucose (UA) Negative Urine Ketones Negative Urine Occult Blood 1+ H Urine Nitrate Negative Urine Bilirubin Negative Urine Urobilinogen 0.2 Ur Leukocyte Esterase Trace H Urine RBC 0-1/hpf Urine WBC 1-5/hpf Ur Squamous Epith Cells None seen Amorphous Sediment 1+ Urine Bacteria None seen Ur Culture Indicated? Cult not indicated Vol Urine Centrifuged 10ml (spun) 02/18/24 05:26 WBC 15.5 H RBC 4.60 Hgb 14.9 Hct 43.5 MCV 94.7 MCH 32.4 MCHC 34.2 RDW 14.4 Plt Count 298 Neut % (Auto) 61.7 Lymph % (Auto) 29.2 [place] % (Auto) 8.1 Eos % (Auto) 0.3 L Baso % (Auto) 0.7 Neut # (Auto) 9600 H Lymph # (Auto) 4500 [place] # (Auto) 1200 H Eos # (Auto) 0 Baso # (Auto) 100 PT INR APTT Sodium 138 Potassium 3.4 Chloride 104 Carbon Dioxide 29 BUN 5 L Creatinine 0.62 Estimated GFR > 60 BUN/Creatinine Ratio 8.1 Glucose 127 H Lactate Calcium 8.4 Magnesium Total Bilirubin AST ALT Alkaline Phosphatase Total Creatine Kinase Troponin I NT-Pro-B Natriuret Pep Total Protein Albumin Globulin Albumin/Globulin Ratio Lipase Urine Color Urine Appearance Urine pH Ur Specific [place] Urine Protein Urine Glucose (UA) Urine Ketones Urine Occult Blood Urine Nitrate Urine Bilirubin Urine Urobilinogen Ur Leukocyte Esterase Urine RBC Urine WBC Ur Squamous Epith Cells Amorphous Sediment Urine Bacteria Ur Culture Indicated? Vol Urine Centrifuged [facility] Medical History COPD (chronic obstructive pulmonary disease) Family history of colitis in mother Leukocytosis Tobacco use Family history of colon cancer in mother History of colonic polyps Menopausal syndrome Allergic rhinitis Depression Pneumonia (~03/2016) Chronic pain Cervical spine disease Chronic back pain Asthma Shoulder pain Colon polyps GERD (gastroesophageal reflux disease) Hyperlipemia Surgical History Status post colposcopy Family History Brother Small cell lung cancer Father CAD (coronary artery disease) Grandmother Brain cancer Mother Colon cancer Family/Other Cancer Social History details: (2011), one son, disabled due to back injury household members: family Tobacco & Substance Use Smoking Status: Current every day smoker alcohol intake: never Assessment & Plan Assessment & Plan narrative: Acute cholecystitis Plan: Laparoscopic cholecystectomy Time-Based Coding :: [TOTAL MINUTES] spent with patient and on the chart (including review of chart, obtaining history, exam, reviewing outside data, placing orders, documenting exam and treatment plan, and counseling patient) on [DATE].
--- NOTE | 2024-02-18 12:00 | PM.PN.1 ---
Subjective Subjective Date Patient Seen: 02/18/24 Time Patient Seen: 08:00 Interval history: The patient reports epigastric and abdominal discomfort. She is scheduled for surgery this morning. Case reviewed with Dr. Yahaira Kincaid. Exam Vital Signs (past 8 hours): - 02/18/24 07:00 02/18/24 08:16 02/18/24 09:09 Temperature 97.6 F Pulse Rate 54 L 64 Respiratory Rate 22 Blood Pressure 123/62 123/61 Pulse Oximetry 96 Oxygen Delivery Method Room Air Oxygen Flow Rate 0 02/18/24 09:40 02/18/24 09:42 02/18/24 11:43 Temperature 98.6 F Pulse Rate 54 L 54 L 58 L Respiratory Rate 24 Blood Pressure 133/66 133/66 159/88 H Pulse Oximetry 98 Oxygen Delivery Method Room Air Oxygen Flow Rate Oxygen Delivery Method Room Air Oxygen Flow Rate 0 Narrative Exam Narrative: GENERAL: This is a well-nourished, well-developed patient, in no apparent distress. EYES: Pupils equal round and reactive. Extraocular motions intact. No scleral icterus. No injection or drainage. ENT: Mucous membranes pink and moist. NECK: Supple, nontender, no meningeal signs. CARDIOVASCULAR: Regular rate and rhythm without murmurs, gallops, or rubs. RESPIRATORY: Clear to auscultation. GASTROINTESTINAL: Abdomen soft, nondistended, moderate epigastric tenderness. no guarding, rebound or rigidity. EXTREMITIES: No clubbing, cyanosis, or edema. NEUROLOGIC: Alert, oriented, speech fluent, full upper and lower motor strength, no focal deficits evident. DERMATOLOGIC: No rashes or skin lesions. Objective Labs 02/18/24 05:26 02/18/24 05:26 Labs: Laboratory Results - last 24 hr 02/17/24 02/17/24 02/17/24 13:00 13:10 15:10 WBC 16.7 H RBC 4.83 Hgb 15.6 Hct 45.6 MCV 94.4 MCH 32.2 MCHC 34.2 RDW 14.5 Plt Count 373 Neut % (Auto) 72.6 Lymph % (Auto) 22.9 L [place] % (Auto) 3.8 Eos % (Auto) 0.2 L Baso % (Auto) 0.5 Neut # (Auto) 91658 H Lymph # (Auto) 3800 [place] # (Auto) 600 Eos # (Auto) 0 Baso # (Auto) 100 PT 12.1 INR 1.1 APTT 34 Sodium 137 Potassium 3.8 Chloride 101 Carbon Dioxide 27 BUN 7 Creatinine 0.59 Estimated GFR > 60 BUN/Creatinine Ratio 11.9 Glucose 155 H Lactate 1.6 Calcium 9.3 Magnesium 1.9 Total Bilirubin 0.5 AST 18 ALT 14 Alkaline Phosphatase 106 Total Creatine Kinase 30 Troponin I < 0.012 NT-Pro-B Natriuret Pep 336 H Total Protein 7.7 Albumin 4.7 Globulin 3.0 Albumin/Globulin Ratio 1.6 Lipase 26 Urine Color Yellow Urine Appearance Clear Urine pH 8.0 Ur Specific [place] 1.010 Urine Protein Negative Urine Glucose (UA) Negative Urine Ketones Negative Urine Occult Blood 1+ H Urine Nitrate Negative Urine Bilirubin Negative Urine Urobilinogen 0.2 Ur Leukocyte Esterase Trace H Urine RBC 0-1/hpf Urine WBC 1-5/hpf Ur Squamous Epith Cells None seen Amorphous Sediment 1+ Urine Bacteria None seen Ur Culture Indicated? Cult not indicated Vol Urine Centrifuged 10ml (spun) 02/18/24 05:26 WBC 15.5 H RBC 4.60 Hgb 14.9 Hct 43.5 MCV 94.7 MCH 32.4 MCHC 34.2 RDW 14.4 Plt Count 298 Neut % (Auto) 61.7 Lymph % (Auto) 29.2 [place] % (Auto) 8.1 Eos % (Auto) 0.3 L Baso % (Auto) 0.7 Neut # (Auto) 9600 H Lymph # (Auto) 4500 [place] # (Auto) 1200 H Eos # (Auto) 0 Baso # (Auto) 100 PT INR APTT Sodium 138 Potassium 3.4 Chloride 104 Carbon Dioxide 29 BUN 5 L Creatinine 0.62 Estimated GFR > 60 BUN/Creatinine Ratio 8.1 Glucose 127 H Lactate Calcium 8.4 Magnesium Total Bilirubin AST ALT Alkaline Phosphatase Total Creatine Kinase Troponin I NT-Pro-B Natriuret Pep Total Protein Albumin Globulin Albumin/Globulin Ratio Lipase Urine Color Urine Appearance Urine pH Ur Specific [place] Urine Protein Urine Glucose (UA) Urine Ketones Urine Occult Blood Urine Nitrate Urine Bilirubin Urine Urobilinogen Ur Leukocyte Esterase Urine RBC Urine WBC Ur Squamous Epith Cells Amorphous Sediment Urine Bacteria Ur Culture Indicated? Vol Urine Centrifuged [facility] Medical History COPD (chronic obstructive pulmonary disease) Family history of colitis in mother Leukocytosis Tobacco use Family history of colon cancer in mother History of colonic polyps Menopausal syndrome Allergic rhinitis Depression Pneumonia (~03/2016) Chronic pain Cervical spine disease Chronic back pain Asthma Shoulder pain Colon polyps GERD (gastroesophageal reflux disease) Hyperlipemia Surgical History Status post colposcopy Family History Brother Small cell lung cancer Father CAD (coronary artery disease) Grandmother Brain cancer Mother Colon cancer Family/Other Cancer Social History details: (2011), one son, disabled due to back injury household members: family Smoking Status: Current every day smoker alcohol intake: never Assessment & Plan Assessment & Plan narrative: 1. Acute cholecystitis, present on admission and active. 2. COPD, present on admission and stable. No exacerbation. 3. Leukocytosis, present on admission and active. Likely relates to cholecystitis. 4. GERD, present on admission and stable. 5. HLD, present on admission and stable. PLAN: -NPO, IV fluids. -IV antibiotics. -cholecystectomy today per surgery. Observation status, anticipate 1 night of hospital necessity. Full resuscitation. PERRY, dispo: Anticipate discharge home on February 17 of surgery goes well. Time-Based Coding :: [TOTAL MINUTES] spent with patient and on the chart (including review of chart, obtaining history, exam, reviewing outside data, placing orders, documenting exam and treatment plan, and counseling patient) on [DATE]. PROFEE Charge codes Subsequent inpatient/observation care: 37440
--- NOTE | 2024-02-18 12:18 | SUR.OPER ---
Supine on padded OR bed, head on pillow, arms secured on padded arm boards at <90 degrees abduction, legs uncrossed, safety belt at thigh, tape over blanket over lower legs. feet resting on footboard
[2024-02-18] MEDS: ACETAMINOPHEN IV 1,000 MG/100 ML VIAL 400 MG IV (12:24)
[2024-02-18] MEDS: BUPIVACAINE 0.5% (PF) 30 ML, EPINEPHrine 0.15 MG INJ (12:25)
[2024-02-18] MEDS: LACTATED RINGERS 1,000 ML 120 ML IV (13:46)
--- NOTE | 2024-02-18 14:06 | CM.DANOTE ---
Patient is a 63 yo female who was admitted OBS Status on 02/17/24 for pain and Cholecystits. Pt has [facility] and [facility] for insurance and her PCP is Dr. Germain Scales. EMR was reviewed. Per MD, pt with hx of COPD and smokes two packs of cigarettes a day and admitted for cholecystitis and per Surgeon plan is Afshan Bowen today around 1100. SW met bedside with pt and explained role and she confirms she lives in [place] at home and her son and mother live with her a well and all have their own rooms and space. Pt states her brother also lives nearby and they can all assist at d/c and help with her dogs. Pt does not use DME for ambulation and still drives and denies any hx of HH or SNF. Pt states years ago that she completed DPOA pwk and had her best friend as her POA but her friend two years ago and pt has not updated her form. 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 Pt does not anticipate any d/c needs and family to provide transport home and preference is home this evening or tomorrow when medically stable. Plan: SW to follow closely post afshan cme to confirm safe plan of home with family assist tonight or tomorrow and any further discharge planning needs. 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 No Advance Directives on File No History Provided By Patient,Medical Record Has Patient been admitted in last 30 No days? Prior Living Arrangements House Household Members family Comment lives with son and mother Type of transporation used prior to Drives own vehicle admit Independent with ADL's Yes Is patient alert and oriented? Yes Caregiver for Another No Barriers to Discharge No Discharge Plan Home Transportation Arrangement Brother likely to transport at d/c Referrals Initiated None needed Whiteboard Updated in Patient Room with Yes name and ext. # of Tin Worker Review Status In Process Please Provide Date Initial DC 02/18/24 Assessment Was Performed Next Review Type Continued Stay Review
--- NOTE | 2024-02-18 15:44 | PM.DS.1 ---
History of Present Illness History of Present Illness Date Patient Seen: 02/18/24 Time Patient Seen: 08:00 Date of Onset of Symptoms: 02/17/24 Chief complaint: chest px, sob, vomiting Narrative: 63-year-old female with history of COPD, hypertension, hyperlipidemia presents by private vehicle from home for right-sided chest pain that radiates to her back. Patient arrives writhing, clutching her chest. symptoms began earlier this morning and woke her up from sleep. Nothing made the pain better and so she came to the emergency department for evaluation. Stat CT angio ordered for dissection evaluation due to the patient's report of pain as well as the severity. ED course: Imaging was suggestive of cholecystitis. Analgesia and IV antibiotics were given. Dr. Kincaid of surgery was consulted and we will be performing cholecystectomy on February 17. Additional information: She was having some right upper quadrant symptoms with the last several days after eating. She was also having some heartburn. Today she initially had chest pain but then it became more abdominal. Imaging was consistent with cholecystitis. She initially was tender in the right upper quadrant but after pain med she was relatively nontender now. She denies history of gallbladder disease or episodes. No clear family history of gallbladder disease. She smokes about 2 packs of cigarettes a day. She takes a maintenance inhaler and rarely has to use as needed albuterol. No recent difficulties with cough, fevers chills, or dyspnea. Discharge Providers Provider Date of admission: 02/17/24 17:05 Discharge Date: 02/18/24 Primary care physician: Germain Scales MD Discharge provider: Germain Scales MD Summary Hospital Course Discharge Diagnosis: 1. Acute cholecystitis,, status post laparoscopic cholecystectomy 02/18/2024 2. COPD, present on admission and stable. No exacerbation. 3. Leukocytosis, present on admission and active. Likely relates to cholecystitis. 4. GERD, present on admission and stable. 5. HLD, present on admission and stable. Hospital Course: The patient was admitted, placed on NPO status and administered IV fluids, IV antibiotics, analgesics and antiemetics. She remained medically stable throughout her hospitalization. She underwent cholecystectomy and was feeling significantly improved postoperatively and interested in discharge home. No other issues arose. Status at Discharge Cognitive/behavioral status at discharge: oriented Functional status at discharge: independent ambulation Overall status at discharge: patient is back to baseline Time Spent with Patient Time spent: Less than 30 minutes Exam Vital Signs (past 8 hours): - 02/18/24 08:16 02/18/24 09:09 02/18/24 09:40 Temperature 97.6 F Pulse Rate 54 L 64 54 L Respiratory Rate 22 Blood Pressure 123/62 123/61 133/66 Pulse Oximetry 96 Oxygen Delivery Method Oxygen Flow Rate 0 02/18/24 09:42 02/18/24 11:43 02/18/24 12:53 Temperature 98.6 F 97.4 F L Pulse Rate 54 L 58 L 58 L Respiratory Rate 24 24 Blood Pressure 133/66 159/88 H 103/46 L Pulse Oximetry 98 95 Oxygen Delivery Method Room Air Room Air Oxygen Flow Rate 02/18/24 12:58 02/18/24 13:03 02/18/24 13:08 Temperature 96.7 F L Pulse Rate 55 L 63 62 Respiratory Rate 12 18 19 Blood Pressure 95/50 L 105/53 L 109/61 Pulse Oximetry 92 98 93 Oxygen Delivery Method Room Air Room Air Room Air Oxygen Flow Rate 02/18/24 13:15 02/18/24 13:20 02/18/24 13:25 Temperature Pulse Rate 55 L 60 62 Respiratory Rate 15 14 14 Blood Pressure 105/57 L 105/56 L 106/58 L Pulse Oximetry 94 98 95 Oxygen Delivery Method Room Air Room Air Room Air Oxygen Flow Rate 02/18/24 13:35 02/18/24 14:11 02/18/24 14:35 Temperature 96 F L Pulse Rate 52 L 51 L 56 L Respiratory Rate 16 Blood Pressure 113/59 L 104/51 L 128/64 Pulse Oximetry 100 94 98 Oxygen Delivery Method Oxygen Flow Rate 0 0 0 Oxygen Delivery Method Room Air Oxygen Flow Rate 0 Narrative Exam Narrative: GENERAL: This is a well-nourished, well-developed patient, in no apparent distress. EYES: Pupils equal round and reactive. Extraocular motions intact. No scleral icterus. No injection or drainage. ENT: Mucous membranes pink and moist. NECK: Supple, nontender, no meningeal signs. CARDIOVASCULAR: Regular rate and rhythm without murmurs, gallops, or rubs. RESPIRATORY: Clear to auscultation. GASTROINTESTINAL: Abdomen soft, nondistended, minimal epigastric tenderness. no guarding, rebound or rigidity. Dressings in place. EXTREMITIES: No clubbing, cyanosis, or edema. NEUROLOGIC: Alert, oriented, speech fluent, full upper and lower motor strength, no focal deficits evident. DERMATOLOGIC: No rashes or skin lesions. Objective Imaging CT scan - abdomen: Radiologist's impression: 1. No significant abnormality noted involving the thoracic and abdominal aorta. 2. Moderate emphysematous change and mild pulmonary interstitial fibrosis. 3. No acute abnormality in the chest. 4. Borderline cardiomegaly with right atrial enlargement. 5. Although the gallbladder is not distended. There is gallbladder wall thickening and a somewhat edematous appearance of the gallbladder. 6. No other potentially significant acute findings in the abdomen and pelvis. Comment: Consider right upper quadrant ultrasound if suspect acute cholecystitis. US - abdomen: Radiologist's impression: 1. Cholelithiasis with findings suspicious for acute cholecystitis including gallbladder wall thickening and positive sonographic Yan sign. Recommend correlation with clinical and laboratory values. 2. Borderline dilated common bile duct. If there are laboratory signs of biliary obstruction, MRCP could be performed for further evaluation. Chest x-ray: Radiologist's impression: No acute cardiopulmonary abnormality is seen. Labs 02/18/24 05:26 02/18/24 05:26 Labs: Laboratory Results - last 24 hr 02/17/24 02/18/24 13:00 05:26 WBC 15.5 H RBC 4.60 Hgb 14.9 Hct 43.5 MCV 94.7 MCH 32.4 MCHC 34.2 RDW 14.4 Plt Count 298 Neut % (Auto) 61.7 Lymph % (Auto) 29.2 [place] % (Auto) 8.1 Eos % (Auto) 0.3 L Baso % (Auto) 0.7 Neut # (Auto) 9600 H Lymph # (Auto) 4500 [place] # (Auto) 1200 H Eos # (Auto) 0 Baso # (Auto) 100 Sodium 138 Potassium 3.4 Chloride 104 Carbon Dioxide 29 BUN 5 L Creatinine 0.62 Estimated GFR > 60 BUN/Creatinine Ratio 8.1 Glucose 127 H Lactate 1.6 Calcium 8.4 PFSH Medical History COPD (chronic obstructive pulmonary disease) Family history of colitis in mother Leukocytosis Tobacco use Family history of colon cancer in mother History of colonic polyps Menopausal syndrome Allergic rhinitis Depression Pneumonia (~03/2016) Chronic pain Cervical spine disease Chronic back pain Asthma Shoulder pain Colon polyps GERD (gastroesophageal reflux disease) Hyperlipemia Surgical History Status post colposcopy Family History Brother Small cell lung cancer Father CAD (coronary artery disease) Grandmother Brain cancer Mother Colon cancer Family/Other Cancer Social History details: (2011), one son, disabled due to back injury household members: family Smoking Status: Current every day smoker alcohol intake: never Discharge Plan Discharge Plan Patient Disposition: Home Provider Discharge Comment: Followup with Dr. Scales 1 week Discharge orders & Medications Prescriptions: New amoxicillin-pot clavulanate [Augmentin] 500-125 mg tablet 1 tab PO BID Qty: 10 0RF oxycodone 10 mg tablet 10 mg PO Q4H PRN (Reason: pain) Qty: 20 0RF Continued oxycodone 10 MG tablet 10 mg PO QID Qty: 112 atorvastatin [Lipitor] 10 mg tablet 10 mg PO HS Qty: 90 3RF metoprolol succinate 50 mg tablet extended release 24 hr 50 mg PO QDAY Qty: 90 3RF amlodipine 5 mg tablet 5 mg PO DAILY Qty: 90 3RF Spiriva with HandiHaler 18 mcg capsule, w/inhalation device 1 cap inhalation DAILY Rx Instructions: puncture 1 cap using device; one dose = 2 inhalations albuterol sulfate 90 mcg/actuation HFA aerosol inhaler 2 puff inhalation Q6H PRN (Reason: bronchospasm) Qty: 25.5 3RF Disabled Parking Permit 1 ea Not Applicable DAILY Qty: 1 0RF terbinafine HCl 250 mg tablet 250 mg PO DAILY Qty: 30 5RF Anoro Ellipta 62.5-25 mcg/actuation blister with device 1 inh inhalation DAILY Qty: 90 3RF cyclobenzaprine 10 MG tablet 10 mg PO TID PRN (Reason: Spasms) (DME) nebulizer and compressor Device Rx Instructions: NEEDED Benadryl 25 mg tablet 25 mg PO QPM Follow up/Referrals: Yulisa Kincaid MD [Physician] - Germain Scales MD [Primary Care Provider] - Visit Report/Discharge Packet Instructions: DI for Laparoscopic Cholecystectomy Stand Alone Forms: Patient Portal/API Discharge Data Primary Care Provider: Germain Scales V Attending Provider: Elkin Tai Admit Date/Time: 02/17/24 17:05 Quality MIPS - Admit I confirm the patient?s Advance Care Plan is present, Code status is documented, Surrogate decision maker is in patient?s record [If Yes, STOP here]: Yes MIPS - Meds 'Current medications' to include all prescriptions, [id number] products, herbals, cannabis/cannabidiol products, and vitamin/mineral/dietary (nutritional) supplements. I have utilized all available resources to obtain, update, or review the patient?s current medications. [If Yes, STOP here]: Yes MIPS - DC The patient has a history of heart transplant or Left Ventricular Assist Device (LVAD). If yes, STOP here.: No The patient has current or prior documentation of left ventricular ejection fraction (LVEF) less than or equal to 40%, or moderate or severely depressed left ventricular systolic function.: No A. The patient was prescribed or already taking an Angiotensin-Converting Enzyme (BRI) Inhibitor, or Angiotensin Receptor Jenn (ARB).: No B. The patient was prescribed or already taking a beta-jenn. [If Yes to Both A & B, STOP here]: No Patient not prescribed/taking BRI or ARB, no reason given.: No Patient not prescribed/taking beta-jenn, no reason given.: No IH PROFEE Charge Codes Discharge inpatient/observation: 87854
--- NOTE | 2024-02-19 07:37 | CM.DPC ---
DCP Discharge Home Per MD, pt tolerated lap susan well yesterday 02/18/24 and returned to the floor and was medically stable to discharge home with family assist last night after SW shift. No concerns and plans of outpt f/u with PCP in one week. Pt discharged home no SW needs last night. CARLOS Baugh
--- NOTE | 2024-03-03 09:32 | PM.OP.1 ---
Operative Date/Time/Diagnoses Date of procedure: 03/03/24 Time of procedure: 09:32 Pre-op diagnosis: Acute cholecystitis Post-op diagnosis: same Procedure & Clinicians Procedure: Laparoscopic cholecystectomy Same procedure as scheduled: Yes Indications: Acute cholecystitis Surgeon: Yulisa Kincaid Click Yes if Unassisted: Yes Anesthesia Type: General Operative Notes Findings: Gangrenous cholecystitis Closure Type: primary Specimen(s): other (Gallbladder) Estimated Blood Loss (mL): 20 Blood products transfused: none Procedure in detail: Preop diagnosis: Acute cholecystitis Postop diagnosis: Same Operative procedure: Laparoscopic cholecystectomy Surgeon: Yahaira Kincaid MD Findings: Gangrenous cholecystitis Procedure: Patient placed in a supine position. Prepped and draped sterile fashion to expose her abdomen. Infraumbilical port site was placed using open technique a 12 mm port. Insufflation began all other ports were placed under direct vision including a 10 mm port in the midepigastrium and 2 5 mm ports in the right lateral abdomen. Gallbladder was grasped pushed cephalad for exposure. Cystic duct was identified and dissected free. It was clipped once distally twice proximally and transected. Cystic artery was identified clipped once distally twice proximally and transected. Gallbladder was then removed from the fossa bed with electrocautery and blunt dissection. Gallbladder was placed into an Endo-Catch bag and pulled through the infraumbilical port site intact. I then surveyed the abdomen and irrigated at the operative site to a clear return we had excellent hemostasis. I then removed all ports began closure. Closure consisted of interrupted 0 Vicryl for fascial closure. Skin was closed with a running 4-0 Vicryl. Steri-Strips and sterile dressings were placed. Patient was awakened, extubated, taken to recovery room in stable condition with needle, instrument, sponge counts correct. Specimen: Gallbladder Blood loss: 20 mL Complications: none Post-operative Condition: stable Disposition: PACU
--- NOTE | 2024-03-09 07:11 | PC.NURSE ---
Late Entry: Piperacillin infusion initiated at 1827 complete at 2228.
== END 2024-02-18 16:10 | disposition home or self-care (01) ==
LOC: ED 17:05 → AC 17:06
PROVIDERS: Internal Medicine; Surgery; Admitting Provider Hospitalist; Emergency Provider Emergency Medicine; PCP Internal Medicine; Referring Provider Emergency Medicine; Visit Provider Hospitalist
PROC: 0FT44ZZ Resection of Gallbladder, Percutaneous Endoscopic Approach (ICD-10-PCS; CPT 47562; principal; 2024-02-18 10:45)
DX: K80.12 Calculus of gallbladder with acute and chronic cholecystitis without obstruction (principal); K82.A1 Gangrene of gallbladder in cholecystitis; R07.9 Chest pain, unspecified; R11.2 Nausea with vomiting, unspecified; J44.9 Chronic obstructive pulmonary disease, unspecified; I10 Essential (primary) hypertension; F17.210 Nicotine dependence, cigarettes, uncomplicated
CPT/HCPCS: 47562; 36415; 71045; 71275; 74174; 76705; 80048; 80053; 81001; 82550; 83605; 83690; 83735; 83880; 84484; 85025; 85610; 85730; 93005; 96365; 96366; 96375; 96376; 99285; G0378; J0136; J0171; J1100; J1170; J1885; J2405; J2543; J2704; J3010; Q9967

== ENCOUNTER → 2025-05-08 09:02 | Outpatient (CLI) | payer MEDICARE, MEDICAID, SELFPAY ==
[2024-02-17 19:00] VITALS: BMI 22.8
[2025-05-08 10:19] LABS: Alanine Aminotransferase 10 IU/L (<35); Albumin 4.2 g/dL (3.5-5.0); Albumin Globulin Ratio 1.4 (1.0-2.8); Alkaline Phosphatase 93 U/L (38-126); Blood Urea Nitrogen 7 mg/dL (7-17); Calcium 9.3 mg/dL (8.4-10.2); Carbon Dioxide 24 mmol/L (22-32); Chloride 98 mmol/L (98-107); Cholesterol 143 mg/dL (140-199); Estimated Glomerular Filt Rate > 60 mL/min (>60); Globulin 2.9 g/dL (1.7-4.1); Glucose 100 mg/dL (70-99); HDL Cholesterol 43 mg/dL (40-60); HEMOLYSIS < 15 (0-50); Potassium 4.2 mmol/L (3.4-5.1); Sodium 131 mmol/L (137-145); Total Protein 7.1 g/dL (6.3-8.2); Triglycerides 153 mg/dL (35-150)
[2025-05-08 10:48] LABS: TSH w/ Reflex to FT4 1.67 uIU/mL (0.47-4.68)
[2025-05-08 12:05] LABS: Hematocrit 48.3 % (36-46); Hemoglobin 16.5 g/dL (12.0-16.0); Mean Corpuscular HGB Conc 34.2 % (30-36); Mean Corpuscular Hemoglobin 32.0 PG (26-34); Mean Corpuscular Volume 93.6 fL (80-100); Platelet Count 304 X10^3/uL (150-400)
== END ==
PROVIDERS: PCP Internal Medicine; Referring Provider Internal Medicine; Visit Provider Internal Medicine
DX: I10 Essential (primary) hypertension (principal); D72.829 Elevated white blood cell count, unspecified; E78.2 Mixed hyperlipidemia
CPT/HCPCS: 36415; 80053; 80061; 84443; 85027